=== PATIENT | male | born 1985 | race Two or more races ===

== ENCOUNTER 2016-09-19 20:07 | Emergency (ER) | payer OTHER ==
[~2016-09-19] VITALS: Ht 167.6 cm; Wt 68.0 kg
[2016-09-19 22:35] VITALS: BP 128/67
== END 2016-09-19 22:37 | disposition home or self-care (01) ==
LOC: M ED 21:32
DX: F43.0 Acute stress reaction (principal); F33.9 Major depressive disorder, recurrent, unspecified; F12.20 Cannabis dependence, uncomplicated; F17.210 Nicotine dependence, cigarettes, uncomplicated

== ENCOUNTER 2020-07-09 03:54 | Inpatient (IN) | payer MEDICAID, OTHER, SELFPAY ==
[~2020-07-09] VITALS: Ht 167.6 cm; Wt 72.8 kg
--- OUTSIDE RECORDS SUMMARY | 2020-07-09 04:00 | CCD ---
Author Author [facility] Organization [facility] Address Unknown Phone Unavailable Support Name Relationship Address Phone [facility] Next Of Kin [address] [place] [address] UNEMPLOYED Next Of Kin Unknown UE Next Of Kin Unknown Unavailable SJALEXANDRA GUTIERREZ Next Of Kin [address] [place] [address] ADELITAALEXANDRA [place] Next Of Kin [address] [place] [address] Re-disclosure Warning The records that you are about to access may contain information from federally-assisted alcohol or drug abuse programs. If such information is present, then the following federally mandated warning applies: This information has been disclosed to you from records protected by federal confidentiality rules (42 CFR part 2). The federal rules prohibit you from making any further disclosure of this information unless further disclosure is expressly permitted by the written consent of the person to whom it pertains or as otherwise permitted by 42 CFR part 2. A general authorization for the release of medical or other information is NOT sufficient for this purpose. The Federal rules restrict any use of the information to criminally investigate or prosecute any alcohol or drug abuse patient.The records that you are about to access may contain highly sensitive health information, the redisclosure of which is protected by Article 27-F of the [facility] Public Health law. If you continue you may have access to information: Regarding HIV / AIDS; Provided by facilities licensed or operated by the [facility] Office of Mental Health; or Provided by the [facility] Office for People With Developmental Disabilities. If such information is present, then the following [facility] mandated warning applies: This information has been disclosed to you from confidential records which are protected by state law. State law prohibits you from making any further disclosure of this information without the specific written consent of the person to whom it pertains, or as otherwise permitted by law. Any unauthorized further disclosure in violation of state law may result in a fine or fci sentence or both. A general authorization for the release of medical or other information is NOT sufficient authorization for further disc losure. Insurance Providers Payer name Policy type / Coverage type Policy ID Covered democrat ID Covered democrat's relationship to leone Policy Leone Plan Information [facility] [id number] SP [id number] [id number] MEDICAID [id number] [id number] [facility] [id number] SP [id number] MEDICAID [id number] [facility] [id number] MEDICAID [id number] [facility] [id number] TOTAL CARE MEDICAID [id number] [id number] [facility] [phone] Harini SELF PAY 2 UNAVAILABLE UNAVAILA BLE SELF PAY 2 UNAVAILABLE 1 UNAVAILA BLE [facility] 2 [id number] SELF PAY 2 UNAVAILABLE UNAVAILA BLE
--- OUTSIDE RECORDS SUMMARY | 2020-07-09 05:20 | CCD ---
Author Author [facility] Organization [facility] Address Unknown Phone Unavailable Support Name Relationship Address Phone GRECIA ROBERTSON Next Of Kin [address] [place] [address] [facility] Next Of Kin [address] [place] [address] UNEMPLOYED Next Of Kin Unknown UE Next Of Kin Unknown Unavailable ALEXANDRA GUSTAFSON Next Of Kin [address] [place] [address] ADELITAALEXANDRA [place] Next Of Kin [address] [facility] [address] [place] [address] Re-disclosure Warning The records that you are [...] is protected by Article 27-F of the [facility] Public Health law. If you continue you may have access to information: Regarding HIV / AIDS; Provided by facilities licensed or operated by the [facility] Office of Mental Health; or Provided by the [facility] Office for People With Developmental Disabilities. If such information is present, then the following [facility] mandated warning applies: This information has been [...] law may result in a fine or residential sentence or both. A general authorization for the release of medical or other information is NOT sufficient authorization for further disc losure. Insurance Providers Payer name Policy type / Coverage type Policy ID Covered green party ID Covered green party's relationship to haro Policy Haro Plan Information [facility] [id number] [id number] MEDICAID [id number] [id number] TOTAL CARE [facility] [id number] [place] [id number] MEDICAID [id number] [id number] [facility] [id number] MEDICAID [id number] [id number] TOTAL CARE MEDICAID [id number] [id number] [facility] [id number] Harini [id number] SELF PAY 2 UNAVAILABLE UNAVAILA BLE SELF PAY 2 UNAVAILABLE 1 UNAVAILA BLE [facility] 2 [id number] SELF PAY 2 UNAVAILABLE UNAVAILA BLE
[2020-07-09 05:21] LABS: HEMATOCRIT 45.7 % (42.0-52.0); HEMOGLOBIN 15.2 g/dl (13.5-17.5); MEAN CORPUSCULAR HEMOGLOBIN 29.3 pg (27.0-33.0); MEAN CORPUSCULAR HGB CONC 33.3 g/dl (32.0-36.5); MEAN CORPUSCULAR VOLUME 88.1 fl (80.0-96.0); PLATELET COUNT, AUTOMATED 333 10^3/uL (150-450); RED BLOOD COUNT 5.19 10^6/uL (4.30-6.10); WHITE BLOOD COUNT 12.1 10^3/uL (4.0-10.0)
[2020-07-09 05:56] LABS: AMPHETAMINES LEVEL URINE POSITIVE (NEGATIVE); BARBITURATES URINE NEGATIVE (NEGATIVE); BENZODIAZEPINES URINE NEGATIVE (NEGATIVE); CANNABINOIDS URINE POSITIVE (NEGATIVE); COCAINE METABOLITE URINE POSITIVE (NEGATIVE); METHADONE URINE NEGATIVE (NEGATIVE); OPIATES URINE NEGATIVE (NEGATIVE); PHENCYCLIDINE URINE NEGATIVE (NEGATIVE)
[2020-07-09 06:05] LABS: ACETAMINOPHEN LEVEL < 2.0 UG/ML (10.0-30.0); ALBUMIN 4.7 GM/DL (3.2-5.2); ALT/SGPT 38 U/L (12-78); BILIRUBIN,DIRECT 0.4 MG/DL (0.0-0.2); BILIRUBIN,TOTAL 1.4 MG/DL (0.2-1.0); BLOOD UREA NITROGEN 22 MG/DL (7-18); CALCIUM LEVEL 10.5 MG/DL (8.5-10.1); CARBON DIOXIDE LEVEL 23 MEQ/L (21-32); CHLORIDE LEVEL 101 MEQ/L (98-107); CPK CREATINE PHOSPHOKINASE 991 U/L (39-308); CREATININE FOR GFR 1.25 MG/DL (0.70-1.30); ETHYL ALCOHOL (ETHANOL) < 0.003 % (0.000-0.010); GLOMERULAR FILTRATION RATE > 60.0 (>60); GLUCOSE, FASTING 72 MG/DL (70-100); POTASSIUM SERUM 4.9 MEQ/L (3.5-5.1); SALICYLATE LEVEL 4.8 MG/DL (5.0-30.0); SODIUM LEVEL 136 MEQ/L (136-145); TOTAL PROTEIN 7.9 GM/DL (6.4-8.2)
[2020-07-09] MEDS ORDERED: OLANZapine ORAL DISINTEGRATING TAB 5MG PO ONE (06:30)
[2020-07-09] MEDS ORDERED: LORazepam 1 MG TAB PO STA (06:30)
[2020-07-09 09:10] LABS: HEPATITIS A ANTIBODY IGM NEGATIVE (NEGATIVE); HEPATITIS B CORE ANTIBODY IGM NEGATIVE (NEGATIVE); HEPATITIS B SURFACE ANTIGEN NEGATIVE (NEGATIVE); HEPATITIS C VIRUS ABY INDEX < 0.0 INDEX (<0.8); HIV 1&2 SCREEN CENTAUR NEGATIVE (NEGATIVE)
[2020-07-09 11:17] LABS: CHLAMYDIA DNA AMPLIFICATION NEGATIVE (NEGATIVE); GC DNA AMPLIFICATION NEGATIVE (NEGATIVE)
[2020-07-09] MEDS ORDERED: MAALOX 30 ML SUSP *UDC PO PRN (13:20)
[2020-07-09] MEDS ORDERED: MOM 30ML SUSPENSION UDC PO PRN (13:20)
--- OUTSIDE RECORDS SUMMARY | 2020-07-09 13:37 | CCD ---
Author Author [facility] Organization [facility] Address Unknown Phone Unavailable Support Name Relationship Address Phone GRECIA ROBERTSON Next Of Kin [address] [place] [address] [facility] Next Of Kin [address] [place] [address] UNEMPLOYED Next Of Kin Unknown UE Next Of Kin Unknown Unavailable ALEXANDRA GUSTAFSON Next Of Kin [address] [place] [address] ADELITAALEXANDRA Palomino Next Of Kin [address] [facility] [address] [place] [address] Re-disclosure Warning The records that you are [...] is protected by Article 27-F of the [facility] Public Health law. If you continue you may have access to information: Regarding HIV / AIDS; Provided by facilities licensed or operated by the [facility] Office of Mental Health; or Provided by the [facility] Office for People With Developmental Disabilities. If such information is present, then the following [facility] mandated warning applies: This information has [...] law may result in a fine or halfway sentence or both. A general authorization for the release of medical or other information is NOT sufficient authorization for further disc losure. Insurance Providers Payer name Policy type / Coverage type Policy ID Covered constitution party ID Covered constitution party's relationship to haro Policy Haro Plan Information SELF PAY ONLY [id number] SP [id number] [facility] [id number] SP [id number] [id number] MEDICAID [id number] [id number] TOTAL CARE [facility] [id number] SP [id number] MEDICAID [id number] [id number] [facility] [id number] MEDICAID [id number] [id number] T[facility] CARE MEDICAID [id number] [facility] [id number] [facility] [id number] Harini [id number] SELF PAY 2 UNAVAILABLE UNAVAILA BLE SELF PAY 2 UNAVAILABLE 1 UNAVAILA BLE [facility] 2 [id number] SELF PAY 2 UNAVAILABLE UNAVAILA BLE
[2020-07-09 16:11] VITALS: BP 128/72
--- OUTSIDE RECORDS SUMMARY | 2020-07-09 17:02 | CCD ---
Author Author [facility] Organization [facility] Address Unknown Phone Unavailable Support Name Relationship Address Phone GRECIA ROBERTSON Next Of Kin [address] [place] [address] [facility] Next Of Kin [address] [place] [address] UNEMPLOYED Next Of Kin Unknown UE Next Of Kin Unknown Unavailable ALEXANDRA GUSTAFSON Next Of Kin [address] [place] [address] ADELITAALEXANDRA Palomino Next Of Kin [address] [facility] [address] [place] [address] Re-disclosure Warning The records that you are [...] is protected by Article 27-F of the [facility] Public Health law. If you continue you may have access to information: Regarding HIV / AIDS; Provided by facilities licensed or operated by the [facility] Office of Mental Health; or Provided by the [facility] Office for People With Developmental Disabilities. If such information is present, then the following [facility] mandated warning applies: This information has [...] law may result in a fine or senior care sentence or both. A general authorization for the release of medical or other information is NOT sufficient authorization for further disc losure. Insurance Providers Payer name Policy type / Coverage type Policy ID Covered green party ID Covered green party's relationship to haro Policy Haro Plan Information SELF PAY ONLY [id number] SP [id number] [facility] [id number] SP [id number] [id number] MEDICAID [id number] [id number] TOTAL CARE [facility] [id number] SP [id number] MEDICAID [id number] [id number] [facility] [id number] MEDICAID [id number] [id number] TOTAL CARE MEDICAID [id number] [facility] [id number] [facility] [phone] Harini [phone] SELF PAY 2 UNAVAILABLE UNAVAILA BLE SELF PAY 2 UNAVAILABLE 1 UNAVAILA BLE [facility] 2 [id number] SELF PAY 2 UNAVAILABLE UNAVAILA BLE
[2020-07-10 06:03] VITALS: BP 129/69
[2020-07-10] MEDS: IBUPROFEN 400MG TAB PO PRN (09:10)
--- NOTE | 2020-07-10 10:55 | MHHPEPDOC ---
General Date Of Admission: Jul 10, 2020 Legal Status: 9.39 Chief Complaint People are whispering about me. People may want to push me off the roof History of Present Illness HISTORY OF THE PRESENT ILLNESS: Patient is a 35 -year-old , male, who states that people are whispering about him and may want to push him off the roof. Patient has a long history of substance abuse. Patient has been in and out of halfway for over 15 years for numerous charges. States that when he applies for interviews of people look him up in terms of his record and he is unable to hold a job. He states an past other employees want to throw him off the roof. He states there are cars chasing him. He states he was at a friend's house and was asked to leave because of things they were saying about me.. He states he has had poor sleep and racing thoughts. He states he has had no outpatient care for 2 years. He is presently working in [employer]. He states he has had numerous charges against him, including probation violations, burglary DWIs, drug use. Not reporting for probation. He has used cocaine, crack, heroin, and anjana.. He states he has had no previous psychiatric hospitalizations, but has had outpatient care, but he does not know his therapist. He states in the past. He has been on Seroquel, Remeron and Vistaril but is not on any medications now. His surgical history is negative. His most recent legal problem has been driving without a license and he has a court date on July 21. He has not been but has a 19-year-old son he has never seen.. He has a GED. He states he has suicidal thoughts but has never made suicidal attempts and is concerned about having sexually transmitted diseases Psychiatric Review of Systems Depression (2 or more weeks): depressed mood, appetite changes, suicidal thoughts Psychosis: auditory hallucination PTSD: denies Anxiety: denies Anxiety/ 6 months or more of: sleep disturbance Past Psychiatric History Previous Psychiatric Diagnosis: Patient has been treated with Seroquel Remeron and Vistaril. Diagnosis unknown. Previous Psychiatric Admissions: No previous admissions. Suicide Attempts:. States no previous suicide attempts. Psychiatric Follow-up:. Has had follow-up appointments, but unclear if patient has been compliant. Psychiatric medications:. No recent medications, but past use of Vistaril, Remeron and Seroquel. Past Medical History Medical Problems No recent medical problem Head Injury: No Seizures: No Hospitalizations: No Surgeries: No Family Medical/Psychiatric HX Medical Problems Family history not yet clarified Psychiatric Disorders: No Addiction: No Suicide Attemps/Completions: No Addiction History alcohol, cocaine, ecstasy, amphetamines, opioids, methamphetamines, heroin Social History Childhood: No information. Abuse/Trauma:. No information. Current Living Situation: Lives with his mother and occasionally his employer. Education: GED. Employment: [employer]. Social Support:. Mother. Legal: Extensive legal history with most recent for driving without license. Marital:, Not . Mental Status Examination General Appearance: unkempt Build: average Demeanor: average Eye Contact: average Activity: average Behavior: cooperative Speech: clear Mood: depressed Mood Depressed and fearful Thought Process: depressed, slow Thought Content (Delusions): persecutory, paranoia, delusions Thought Content (Other): internal-stimuli Thought Content (Aggressive): none reported Perception (Hallucinations): auditory, visual Perception (Other): none reported Cognition (Impairment of): none reported Cognition(Intelligence Est.): average Oriented: Awake, Alert, Oriented times three Insight: poor Judgment: Poor Psychosis: Psychotic Perceptions Diagnoses 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 Patient was admitted on a [9.39] status. 2. Complete history was obtained. 3. With patients permission, family will be contacted and database will be expanded. 4. Patients medication regimen will be reviewed and changed accordingly. 5. Patient will be provided with protected environment. 6. Patient will be treated with individual, group, and milieu therapies. 7. Patient will receive supportive psych-education. 8. Discharge planning will commence immediately. 9. Outpatient follow-up treatment will be strongly recommended. 10. The initial treatment plan will focus initially on: * Depression. * Risk for suicide. ESTIMATED LENGTH OF STAY: - DAYS. TIME SPENT COUNSELING AND COORDINATING INITIAL CARE: minutes. Vital Signs Vital Signs Date Time Temp Pulse Resp B/P (MAP) Pulse Ox O2 Delivery O2 Flow Rate FiO2 07/10/20 06:03 97.9 61 18 129/69 (89) 98 Room Air Laboratory Data 24H Labs Laboratory Tests 2 07/09/20 13:14: Coronavirus (COVID-19)(PCR) NEGATIVE Medications No Active Prescriptions or Reported Meds Allergies Coded Allergies: No Known Allergies (Unverified , 07/09/20) QUIRINO FAUSTIN MD Jul 10, 2020 10:55
[2020-07-10 11:58] LABS: ALBUMIN 4.1 GM/DL (3.2-5.2); ALT/SGPT 38 U/L (12-78); BILIRUBIN,TOTAL 0.7 MG/DL (0.2-1.0); BLOOD UREA NITROGEN 20 MG/DL (7-18); CALCIUM LEVEL 9.2 MG/DL (8.5-10.1); CARBON DIOXIDE LEVEL 27 MEQ/L (21-32); CHLORIDE LEVEL 106 MEQ/L (98-107); CPK CREATINE PHOSPHOKINASE 226 U/L (39-308); CREATININE FOR GFR 1.12 MG/DL (0.70-1.30); GLOMERULAR FILTRATION RATE > 60.0 (>60); GLUCOSE, FASTING 108 MG/DL (70-100); POTASSIUM SERUM 4.3 MEQ/L (3.5-5.1); SODIUM LEVEL 140 MEQ/L (136-145); TOTAL PROTEIN 6.7 GM/DL (6.4-8.2)
--- NOTE | 2020-07-10 14:27 | HPEPDOC ---
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 The patient presented to the emergency room complaining of increased paranoia, auditory hallucinations which have been going on for 2 years. The patient states he's been using drugs to help calm these hallucinations but this has only made his situation worse. He has difficulty concentrating, insomnia, poor appetite, decreased energy and feels hopeless. He denied suicidal or homicidal ideation or self-harm. He states he currently has multiple life stressors, has been in and out of alf over the past several years and has trouble with substance abuse. He states he does not have a good support system within his [place] of friends who also use drugs. He used to follow with behavioral health as outpatient but he is not in some time. He also does not have a primary care provider to follow up with in the community. UDS was positive for amphetamines, cocaine and cannabinoids. Creatinine was within normal limits. Approaching the higher limits of normal, CK elevated at 991. There was no documented seizures prior to coming to the ER. 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 Medicine team was consulted on 07/10/2020 to further evaluate. The patient was borderline tearful in telling me his issues as listed above. CK improved and creatinine was within normal limits. Bili was also improved compared to admission. He admits to having at times muscle aches but denies chest pains, shyness of breath, lightheadedness, dizziness, headaches. He claims to feel better since being in the hospital. He was a big concerned as a sexual partner told him recently to be "checked" for STD due to positive test on her end. All STDs thus far are neg here. He denies dysuria, rashes, hematuria, polyuria. REVIEW OF SYSTEMS: Neg except for what is mentioned above PAST MEDICAL HISTORY: Polysubstance abuse (amphetamines, cocaine, cannabinoids, opiates, alcohol) ADHD depression bipolar disorder PAST SURGICAL HISTORY: none FAMILY HISTORY: Father: Does not know biological father Mother: emphysema. Alive SOCIAL HISTORY: Smokes 1 pack per day and has done so for 20 years. He also admits to smoking marijuana. He also is a 20 year history of drug abuse with the aforementioned drugs. He takes alcohol 612 beers per night but not consistently. Lives at various residences as he does not have a permanent residence of his own. He is a full code ALLERGIES: Please see below. HOME MEDICATIONS: Please see below. PHYSICAL EXAMINATION: VS: Please see below CONSTITUTIONAL: No acute distress, AAO x 3 EYES: PERRLA, EOM intact HENT, MOUTH: Normocephalic, atraumatic, moist mucous membranes, NECK: SUPPLE, no JVD, no lymphadenopathy, no carotid bruit CV: Regular rate and rhythm, S1S2 normal, no murmurs/rubs/gallops RESPIRATORY: Clear to auscultation bilaterally, no rales/rhonchi/wheezes GI: BS positive in 4 quadrants, soft, nontender, nondistended, no rebound or guarding, no organomegaly : Deferred MUSCULOSKELETAL: Normal ROM. No cyanosis, clubbing, swelling, joint deformity, extremity edema INTEGUMENTARY: Multiple tattoos on body, intact, no rashes, no lesions, no erythema NEUROLOGIC: Cranial Nerves II-XII are intact, no focal deficits PSYCHIATRIC: Slightly agitated mood LABORATORY DATA: Please see below IMAGING: None ASSESSMENT: 35-year-old male with PMH of polysubstance abuse (amphetamines, cocaine, cannabinoids, opiates, alcohol) , ADHD, depression, bipolar disorder admitted to [facility] for psychotic disorder 2/2 to substance abuse. PLAN: Psychotic disorder 2/2 to polysubstance abuse -Plan per psychiatry Hx of depression / ADHD / bipolar disorder -Plan per psych Elevated CK -Cr wnl, CK improving -Encourage fluids Q2H while awake Tobacco use -Nicotine patch Alcohol abuse -No s/s of withdrawl -CIWA protocol started DISPOSITION: Thank you kindly for this consult. At this will sign off on patient but if needed again, please do not hesitate to call us at any time. Vital Signs Vital Signs Date Time Temp Pulse Resp B/P (MAP) Pulse Ox O2 Delivery O2 Flow Rate FiO2 07/10/20 06:03 97.9 61 18 129/69 (89) 98 Room Air Laboratory Data Labs 24H Laboratory Tests 2 07/10/20 10:46: Anion Gap 7L, Glomerular Filtration Rate > 60.0, Calcium Level 9.2, Total Bilirubin 0.7, Aspartate Amino Transf (AST/SGOT) 31, Alanine Aminotransferase (ALT/SGPT) 38, Alkaline Phosphatase 104, Total Creatine Kinase 226#, Total Protein 6.7, Albumin 4.1, Albumin/Globulin Ratio 1.6 CBC/BMP Laboratory Tests 07/10/20 10:46 Home Medications No Active Prescriptions or Reported Meds Allergies Coded Allergies: No Known Allergies (Unverified , 07/09/20) A-FIB/CHADSVASC A-FIB History Current/History of A-Fib/PAF?: No Current PO Anticoag Therapy: No Age/Risk Factor Scoring CHADSVASC: CHADSVASC Response (Comments) Value Age Risk Factor Age < 65 years old 0 Gender Risk Factor Male 0 Hx of CHF No 0 Hx of HTN No 0 Hx of Stroke/TIA/or VTE No 0 Hx of Diabetes No 0 Hx of Vascular Disease No 0 Total 0 Treatment Treatment ordered: NONE Other anticoagulant ordered: none Claudia Swann MD Jul 10, 2020 14:27
[2020-07-10] MEDS ORDERED: LORazepam 2 MG TAB PO PRN (14:30)
[2020-07-10] MEDS: FOLIC ACID 1 MG TAB PO SCH (15:02)
[2020-07-10] MEDS: MULTIVITAMINS/MINERALS THERAP 1 TAB PO SCH (15:03)
[2020-07-10] MEDS: THIAMINE 100 MG TAB PO SCH ×2 (15:03→21:06)
[2020-07-10] MEDS: NICOTINE 21MG/24HR 1 EA TRANSDERMAL TD SCH (15:03)
[2020-07-10 19:11] VITALS: BP 140/86
[2020-07-10] MEDS: traZODone 50 MG TAB PO PRN (21:06)
[2020-07-11 06:09] VITALS: BP 104/58
[2020-07-11] MEDS: IBUPROFEN 400MG TAB PO PRN (09:29)
[2020-07-11] MEDS: FOLIC ACID 1 MG TAB PO SCH (09:29)
[2020-07-11] MEDS: THIAMINE 100 MG TAB PO SCH ×2 (09:29→20:37)
[2020-07-11] MEDS: NICOTINE 21MG/24HR 1 EA TRANSDERMAL TD SCH (09:30)
[2020-07-11] MEDS: MULTIVITAMINS/MINERALS THERAP 1 TAB PO SCH (09:31)
[2020-07-11] MEDS ORDERED: QUEtiapine FUMARATE 100 MG TAB PO ONE (14:40)
--- NOTE | 2020-07-11 14:52 | MHIPNPDOC ---
[facility] Progress Note Progress Note DATE OF SERVICE: 07/11/20 HISTORY: 35-year-old male with extensive drug use was admitted in paranoid psychotic state. VITAL SIGNS: See below. NEW TEST RESULTS:, Non-. CURRENT MEDICATIONS: See below. MENTAL STATUS EXAMINATION: Patient is a 35-year old male, who is clearing today and decreased paranoia. Speech: Is. Normal. Language skills are intact. Thought processes including: Agreeing that he had become psychotic using drugs. Thought content: As above. Abstract reasoning, and computation: Able to abstract. Description of associations:. No loose association. Description of abnormal or psychotic thoughts: No psychotic thoughts expressed today. Judgment: Improving. Insight: Fair. Orientation: 3. Recent and remote memory: Improved. Attention span and concentration: Apparently normal. Language:. No disturbance. Fund of knowledge: Full. Mood: Euthymic. Affect:, Flat. DIAGNOSES: 1., Polysubstance abuse. 2., Psychosis secondary to polysubstance abuse. 3. None. ASSESSMENT:, As above MANAGEMENT PLAN:, Further observation, started, Seroquel. TIME SPENT: 30 minutes. Vital Signs Vital Signs Date Time Temp Pulse Resp B/P (MAP) Pulse Ox O2 Delivery O2 Flow Rate FiO2 07/11/20 06:09 98.1 61 20 104/58 (73) 95 Room Air Current Medications Current Medications Medications (Trade) Dose Ordered Sig/Shashi Route PRN Reason Start Time Stop Time Status Last Admin Dose Admin Al Hydrox/Mg Hydrox/Simethicone (Mylanta) 30 ml Q4HP PRN PO HEARTBURN/INDIGESTION 07/09/20 13:20 Folic Acid (Folic Acid) 1 mg DAILY PO 07/10/20 09:00 07/11/20 09:29 Home Med (Med Rec Complete!) ASDIRECTED XX 07/09/20 13:20 07/09/20 13:20 DC Ibuprofen (Advil) 400 mg Q6HP PRN PO PAIN 07/09/20 13:20 07/11/20 09:29 Lorazepam (Ativan) 1 mg STAT STAT PO 07/09/20 06:30 07/09/20 06:31 DC 07/09/20 06:38 Lorazepam (Ativan) 2 mg ASDIRECTED PRN PO SEE PROTOCOL 07/10/20 14:30 Magnesium Hydroxide (Milk Of Magnesia) 30 ml DAILYPRN PRN PO CONSTIPATION 07/09/20 13:20 Multivitamins (Theragram-M) 1 tab DAILY PO 07/10/20 09:00 07/11/20 09:31 Nicotine (Nicoderm Cq 21mg) 1 patch DAILY TD 07/10/20 15:00 07/11/20 09:30 Thiamine HCl (Thiamine HCl) 100 mg BID PO 07/10/20 09:00 07/12/20 21:01 07/11/20 09:29 Trazodone HCl (Desyrel) 50 mg QHSP PRN PO INSOMNIA 07/09/20 13:20 07/10/20 21:06 Allergies Coded Allergies: No Known Allergies (Unverified , 07/09/20) QUIRINO FAUSTIN MD Jul 11, 2020 14:52
[2020-07-11 17:30] VITALS: BP 141/75
[2020-07-11] MEDS: QUEtiapine FUMARATE 100 MG TAB PO SCH (20:37)
[2020-07-12 06:28] VITALS: BP 98/52
[2020-07-12 08:10] VITALS: BP 98/52
[2020-07-12] MEDS: THIAMINE 100 MG TAB PO SCH ×2 (09:39→21:02)
[2020-07-12] MEDS: MULTIVITAMINS/MINERALS THERAP 1 TAB PO SCH (09:39)
[2020-07-12] MEDS: FOLIC ACID 1 MG TAB PO SCH (09:39)
[2020-07-12] MEDS: NICOTINE 21MG/24HR 1 EA TRANSDERMAL TD SCH (09:40)
--- NOTE | 2020-07-12 16:12 | MHIPNPDOC ---
[facility] Progress Note Progress Note DATE OF SERVICE: 07/12/20 HISTORY: 35-year-old male admitted with psychosis due to drug abuse. VITAL SIGNS: See below. NEW TEST RESULTS: None. CURRENT MEDICATIONS: See below. MENTAL STATUS EXAMINATION: Patient is a 35-year old male, who is in improved Mood and thoughts are clear. Speech: Is normal. Language skills are. No disturbance. Thought processes including: Planning on rehabilitation. Thought content: Planning on rehabilitation and stopping of drugs. Abstract reasoning, and computation: Able to abstract. Description of associations:. No disturbance. Description of abnormal or psychotic thoughts:. No abnormal or psychotic thought. Judgment: Improved. Insight:. Fair. Orientation: 3. Recent and remote memory: Intact. Attention span and concentration: Intact. Language:. No disturbance. Fund of knowledge: Reasonable. Mood: Good. Affect: Congruent. DIAGNOSES: 1. 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 2. None. 3. None. ASSESSMENT: As above MANAGEMENT PLAN:. Outpatient planning to ensue. TIME SPENT: 30 minutes. Vital Signs Vital Signs Date Time Temp Pulse Resp B/P (MAP) Pulse Ox O2 Delivery O2 Flow Rate FiO2 07/12/20 08:10 59 98/52 07/12/20 06:28 98.4 14 99 Room Air Current Medications Current Medications Medications (Trade) Dose Ordered Sig/Shashi Route PRN Reason Start Time Stop Time Status Last Admin Dose Admin Al Hydrox/Mg Hydrox/Simethicone (Mylanta) 30 ml Q4HP PRN PO HEARTBURN/INDIGESTION 07/09/20 13:20 Folic Acid (Folic Acid) 1 mg DAILY PO 07/10/20 09:00 07/12/20 09:39 Home Med (Med Rec Complete!) ASDIRECTED XX 07/09/20 13:20 07/09/20 13:20 DC Ibuprofen (Advil) 400 mg Q6HP PRN PO PAIN 07/09/20 13:20 07/11/20 09:29 Lorazepam (Ativan) 1 mg STAT STAT PO 07/09/20 06:30 07/09/20 06:31 DC 07/09/20 06:38 Lorazepam (Ativan) 2 mg ASDIRECTED PRN PO SEE PROTOCOL 07/10/20 14:30 Magnesium Hydroxide (Milk Of Magnesia) 30 ml DAILYPRN PRN PO CONSTIPATION 07/09/20 13:20 Multivitamins (Theragram-M) 1 tab DAILY PO 07/10/20 09:00 07/12/20 09:39 Nicotine (Nicoderm Cq 21mg) 1 patch DAILY TD 07/10/20 15:00 07/12/20 09:40 Quetiapine Fumarate (SEROquel) 100 mg QHS PO 07/11/20 21:00 07/11/20 20:37 Thiamine HCl (Thiamine HCl) 100 mg BID PO 07/10/20 09:00 07/12/20 21:01 07/12/20 09:39 Trazodone HCl (Desyrel) 50 mg QHSP PRN PO INSOMNIA 07/09/20 13:20 07/10/20 21:06 Allergies Coded Allergies: No Known Allergies (Unverified , 07/09/20) QUIRINO FAUSTIN MD Jul 12, 2020 16:12
[2020-07-12] MEDS: IBUPROFEN 400MG TAB PO PRN (16:49)
[2020-07-12 16:54] VITALS: BP 140/85
[2020-07-12] MEDS: QUEtiapine FUMARATE 100 MG TAB PO SCH (21:02)
[2020-07-12] MEDS: traZODone 50 MG TAB PO PRN (21:02)
[2020-07-13 06:50] VITALS: BP 118/67
[2020-07-13] MEDS: FOLIC ACID 1 MG TAB PO SCH (08:55)
[2020-07-13] MEDS: MULTIVITAMINS/MINERALS THERAP 1 TAB PO SCH (08:55)
[2020-07-13] MEDS: NICOTINE 21MG/24HR 1 EA TRANSDERMAL TD SCH (08:55)
[2020-07-13] MEDS: IBUPROFEN 400MG TAB PO PRN ×2 (08:56→20:52)
--- NOTE | 2020-07-13 12:57 | MHIPNPDOC ---
[facility] Progress Note Progress Note DATE OF SERVICE: 07/13/20 HISTORY: Substance abuse and paranoia brought this patient to the hospital. VITAL SIGNS: See below. NEW TEST RESULTS: None CURRENT MEDICATIONS: See below. MENTAL STATUS EXAMINATION: Patient is a 35-year old male, who is. Presently clear. Speech: Is. No disturbance of speech. Language skills are intact. Thought processes including:. No disturbance. Thought content: Planning rehabilitation. Abstract reasoning, and computation: Able to abstract. Description of associations:. No loose association. Description of abnormal or psychotic thoughts:. No psychotic thought. At this time. Judgment:. Improved. Insight: Good. Orientation: 3. Recent and remote memory: Intact. Attention span and concentration:. No disturbance. Language: Intact. Fund of knowledge:. Reasonable. Mood: Good. Affect: Congruent DIAGNOSES: 1.. Substance abuse. 2.. Paranoia secondary to substance abuse. 3. None. ASSESSMENT:, As above MANAGEMENT PLAN:, Discharge planning and rehabilitation and alcohol treatment. TIME SPENT:, 30 minutes. Vital Signs Vital Signs Date Time Temp Pulse Resp B/P (MAP) Pulse Ox O2 Delivery O2 Flow Rate FiO2 07/13/20 06:50 98.2 54 18 118/67 (84) 99 Room Air Current Medications Current Medications Medications (Trade) Dose Ordered Sig/Shashi Route PRN Reason Start Time Stop Time Status Last Admin Dose Admin Al Hydrox/Mg Hydrox/Simethicone (Mylanta) 30 ml Q4HP PRN PO HEARTBURN/INDIGESTION 07/09/20 13:20 Folic Acid (Folic Acid) 1 mg DAILY PO 07/10/20 09:00 07/13/20 08:55 Home Med (Med Rec Complete!) ASDIRECTED XX 07/09/20 13:20 07/09/20 13:20 DC Ibuprofen (Advil) 400 mg Q6HP PRN PO PAIN 07/09/20 13:20 07/13/20 08:56 Lorazepam (Ativan) 1 mg STAT STAT PO 07/09/20 06:30 07/09/20 06:31 DC 07/09/20 06:38 Lorazepam (Ativan) 2 mg ASDIRECTED PRN PO SEE PROTOCOL 07/10/20 14:30 07/13/20 07:48 DC Magnesium Hydroxide (Milk Of Magnesia) 30 ml DAILYPRN PRN PO CONSTIPATION 07/09/20 13:20 Multivitamins (Theragram-M) 1 tab DAILY PO 07/10/20 09:00 07/13/20 08:55 Nicotine (Nicoderm Cq 21mg) 1 patch DAILY TD 07/10/20 15:00 07/13/20 08:55 Quetiapine Fumarate (SEROquel) 100 mg QHS PO 07/11/20 21:00 07/12/20 21:02 Thiamine HCl (Thiamine HCl) 100 mg BID PO 07/10/20 09:00 07/12/20 21:01 DC 07/12/20 21:02 Trazodone HCl (Desyrel) 50 mg QHSP PRN PO INSOMNIA 07/09/20 13:20 07/12/20 21:02 Allergies Coded Allergies: No Known Allergies (Unverified , 07/09/20) QUIRINO FAUSTIN MD Jul 13, 2020 12:57
[2020-07-13 18:41] VITALS: BP 129/75
[2020-07-13] MEDS: traZODone 50 MG TAB PO PRN (20:51)
[2020-07-13] MEDS: QUEtiapine FUMARATE 100 MG TAB PO SCH (20:51)
[2020-07-14 06:28] VITALS: BP 111/60
[2020-07-14] MEDS: NICOTINE 21MG/24HR 1 EA TRANSDERMAL TD SCH (09:00)
[2020-07-14] MEDS ORDERED: QUET100T2 PO (09:34)
[2020-07-14] MEDS: FOLIC ACID 1 MG TAB PO SCH (09:50)
[2020-07-14] MEDS: MULTIVITAMINS/MINERALS THERAP 1 TAB PO SCH (09:50)
--- NOTE | 2020-07-14 16:27 | MHDSPDOC ---
[facility] Discharge Summary Discharge Summary DATE OF ADMISSION: Jul 09, 2020 at 16:53 DATE OF DISCHARGE: Jul 14, 2020 at 10:47 DISCHARGE DIAGNOSES: 1. Psychosis secondary to polysubstance abuse. 2. REASON FOR ADMISSION: Paranoia following use of multiple substances CONSULTANTS INVOLVED: None TREATMENT AND PROGRESS ON THE UNIT :. Patient became clear, less paranoid, more coherent. HOSPITAL COURSE: As above DISCHARGE ASSESSMENT:, Patient is a polysubstance abuser and may continue to have difficulties though he claims he will again try sobriety MENTAL STATUS EXAMINATION ON DISCHARGE: Patient is a -year old male, who is . Speech is . Language skills are . Thought processes including: . Thought content: . Abstract reasoning, and computation: . Description of associations: . Description of abnormal or psychotic thoughts: . Judgment: . Insight: . Orientation to . Recent and remote memory: . Attention span and concentration: . Language: . Fund of knowledge: . Mood: . Affect: . MEDICATIONS ON DISCHARGE: - for . - for . - for . PLAN/FOLLOWUP ARRANGEMENTS: . The amount of time spent in the coordination of care for this patient was approximately minutes. ETOH/Disorder Med Rx ETOH/DRUG DISORDER RX: Given to pt at d/c Vital Signs/I&Os Vital Signs Date Time Temp Pulse Resp B/P (MAP) Pulse Ox O2 Delivery O2 Flow Rate FiO2 07/14/20 06:28 97.6 51 20 111/60 (77) 99 Room Air Laboratory [facility] 24H Positive toxicology screen Medications Scheduled Quetiapine Fumarate (Quetiapine Fumarate) 100 Mg Tablet, 100 MG PO QHS for Anxiety Sleep, #10 Allergies Coded Allergies: No Known Allergies (Unverified , 07/09/20) QUIRINO FAUSTIN MD Jul 14, 2020 16:27
== END 2020-07-14 10:47 | disposition home or self-care (01) | DRG 773 ==
LOC: M ED 03:54 → M ED INP 13:20 → UNDOADMIN 13:20 → M PSY 16:24 → M ED INP 16:24 → M PSY 16:53
PROVIDERS: ADMIT Psychiatry & Neurology Psychiatry; ATTEND Psychiatry & Neurology Child & Adolescent Psychiatry
DX: F19.94 Other psychoactive substance use, unspecified with psychoactive substance-induced mood disorder (principal); F11.10 Opioid abuse, uncomplicated; F14.10 Cocaine abuse, uncomplicated; F10.10 Alcohol abuse, uncomplicated; F12.10 Cannabis abuse, uncomplicated; F15.10 Other stimulant abuse, uncomplicated; F17.200 Nicotine dependence, unspecified, uncomplicated

== ENCOUNTER 2021-06-25 13:45 | Emergency (ER) | payer MEDICAID, OTHER ==
[~2021-06-25] VITALS: Ht 170.2 cm; Wt 63.6 kg
[~2021-06-25 13:45] MED LIST: QUET100T2 PO
[2021-06-25 15:26] LABS: HEMATOCRIT 44.9 % (42.0-52.0); HEMOGLOBIN 14.7 g/dl (13.5-17.5); MEAN CORPUSCULAR HEMOGLOBIN 30.1 pg (27.0-33.0); MEAN CORPUSCULAR HGB CONC 32.7 g/dl (32.0-36.5); MEAN CORPUSCULAR VOLUME 91.8 fl (80.0-96.0); PLATELET COUNT, AUTOMATED 387 10^3/uL (150-450); RED BLOOD COUNT 4.89 10^6/uL (4.30-6.10); WHITE BLOOD COUNT 8.5 10^3/uL (4.0-10.0)
[2021-06-25 15:34] LABS: AMPHETAMINES LEVEL URINE NEGATIVE (NEGATIVE); BARBITURATES URINE NEGATIVE (NEGATIVE); BENZODIAZEPINES URINE NEGATIVE (NEGATIVE); CANNABINOIDS URINE POSITIVE (NEGATIVE); COCAINE METABOLITE URINE NEGATIVE (NEGATIVE); METHADONE URINE NEGATIVE (NEGATIVE); OPIATES URINE NEGATIVE (NEGATIVE); PHENCYCLIDINE URINE NEGATIVE (NEGATIVE)
[2021-06-25 16:16] LABS: ACETAMINOPHEN LEVEL < 2.0 UG/ML (10.0-30.0); ALBUMIN 3.4 GM/DL (3.2-5.2); ALT/SGPT 20 U/L (12-78); BILIRUBIN,DIRECT < 0.1 MG/DL (0.0-0.2); BILIRUBIN,TOTAL < 0.1 MG/DL (0.2-1.0); BLOOD UREA NITROGEN 16 MG/DL (7-18); CALCIUM LEVEL 9.1 MG/DL (8.5-10.1); CARBON DIOXIDE LEVEL 31 MEQ/L (21-32); CHLORIDE LEVEL 109 MEQ/L (98-107); CREATININE FOR GFR 0.87 MG/DL (0.70-1.30); ETHYL ALCOHOL (ETHANOL) < 0.003 % (0.000-0.010); GLOMERULAR FILTRATION RATE > 60.0 (>60); GLUCOSE, FASTING 85 MG/DL (70-100); POTASSIUM SERUM 4.6 MEQ/L (3.5-5.1); SODIUM LEVEL 141 MEQ/L (136-145); TOTAL PROTEIN 6.2 GM/DL (6.4-8.2)
[2021-06-25 18:31] VITALS: BP 143/82
== END 2021-06-25 18:32 | disposition home or self-care (01) ==
LOC: M ED 13:45
DX: F19.129 Other psychoactive substance abuse with intoxication, unspecified (principal); Z79.899 Other long term (current) drug therapy

== ENCOUNTER 2021-08-11 06:12 | Inpatient (IN) | payer OTHER ==
[~2021-08-11] VITALS: Ht 167.6 cm; Wt 63.6 kg
[2021-08-11 06:59] LABS: HEMATOCRIT 43.5 % (42.0-52.0); HEMOGLOBIN 14.7 g/dl (13.5-17.5); MEAN CORPUSCULAR HEMOGLOBIN 30.2 pg (27.0-33.0); MEAN CORPUSCULAR HGB CONC 33.8 g/dl (32.0-36.5); MEAN CORPUSCULAR VOLUME 89.3 fl (80.0-96.0); PLATELET COUNT, AUTOMATED 316 10^3/uL (150-450); RED BLOOD COUNT 4.87 10^6/uL (4.30-6.10)
[2021-08-11 07:19] LABS: AMPHETAMINES LEVEL URINE NEGATIVE (NEGATIVE); BARBITURATES URINE NEGATIVE (NEGATIVE); BENZODIAZEPINES URINE NEGATIVE (NEGATIVE); CANNABINOIDS URINE POSITIVE (NEGATIVE); COCAINE METABOLITE URINE NEGATIVE (NEGATIVE); METHADONE URINE NEGATIVE (NEGATIVE); OPIATES URINE NEGATIVE (NEGATIVE); PHENCYCLIDINE URINE NEGATIVE (NEGATIVE)
[2021-08-11 07:30] LABS: RSV AMPLIFICATION NEGATIVE (NEGATIVE)
[2021-08-11 07:31] LABS: ACETAMINOPHEN LEVEL < 2.0 UG/ML (10.0-30.0); ALBUMIN 3.7 GM/DL (3.2-5.2); ALT/SGPT 20 U/L (12-78); BILIRUBIN,DIRECT < 0.1 MG/DL (0.0-0.2); BILIRUBIN,TOTAL 0.1 MG/DL (0.2-1.0); BLOOD UREA NITROGEN 11 MG/DL (7-18); CALCIUM LEVEL 9.1 MG/DL (8.5-10.1); CARBON DIOXIDE LEVEL 32 MEQ/L (21-32); CHLORIDE LEVEL 109 MEQ/L (98-107); CREATININE FOR GFR 0.95 MG/DL (0.70-1.30); ETHYL ALCOHOL (ETHANOL) < 0.003 % (0.000-0.010); GLOMERULAR FILTRATION RATE > 60.0 (>60); GLUCOSE, FASTING 84 MG/DL (70-100); POTASSIUM SERUM 4.4 MEQ/L (3.5-5.1); SODIUM LEVEL 143 MEQ/L (136-145); TOTAL PROTEIN 6.5 GM/DL (6.4-8.2)
[2021-08-11] MEDS ORDERED: HOME MED LIST COMPLETE! XX SCH (12:20)
[2021-08-11] MEDS ORDERED: MAALOX 30 ML SUSP *UDC PO PRN (12:35)
[2021-08-11] MEDS ORDERED: OLANZapine 5 MG TAB PO PRN (12:35)
[2021-08-11] MEDS ORDERED: ACETAMINOPHEN TAB 650MG DOSE (2X325MG) PO PRN (12:35)
[2021-08-11] MEDS ORDERED: MOM 30ML SUSPENSION UDC PO PRN (12:35)
[2021-08-11 13:53] VITALS: BP 128/74
[2021-08-12] MEDS: VENLAFAXINE **XR** 37.5 MG CAPSULE PO SCH (09:00)
[2021-08-12] MEDS: NICOTINE 14 MG/24 HR TRANSDERMAL TD SCH (14:50)
[2021-08-12 16:46] VITALS: BP 108/64
[2021-08-12] MEDS: traZODone 50 MG TAB PO PRN (21:14)
[2021-08-12] MEDS: QUEtiapine FUMARATE 100 MG TAB PO SCH (21:14)
[2021-08-13 06:00] VITALS: BP 103/62
[2021-08-13] MEDS: VENLAFAXINE **XR** 37.5 MG CAPSULE PO SCH (09:39)
[2021-08-13] MEDS: NICOTINE 14 MG/24 HR TRANSDERMAL TD SCH (09:39)
[2021-08-13 13:50] LABS: CHOLESTEROL RISK RATIO 2.381 (<5)
[2021-08-13 18:31] VITALS: BP 136/80
[2021-08-13] MEDS: traZODone 50 MG TAB PO PRN (21:01)
[2021-08-13] MEDS: QUEtiapine FUMARATE 100 MG TAB PO SCH (21:01)
[2021-08-14 06:00] VITALS: BP 110/56
[2021-08-14] MEDS: NICOTINE 14 MG/24 HR TRANSDERMAL TD SCH (09:39)
[2021-08-14] MEDS: VENLAFAXINE **XR** 37.5 MG CAPSULE PO SCH (09:39)
[2021-08-14] MEDS ORDERED: QUET100T2 PO (11:15)
[2021-08-14] MEDS ORDERED: VENL37.598 PO (11:15)
[2021-08-14] MEDS ORDERED: NICO14PA TD (11:15)
[2021-08-14] MEDS ORDERED: TRAZ-252 PO (11:15)
[2021-08-14] MEDS ORDERED: guaiFENesin ER 600 MG TAB PO SCH (11:30)
== END 2021-08-14 13:32 | disposition home or self-care (01) | DRG 753 ==
LOC: M ED 06:12 → M ED INP 12:33 → M PSY 13:46
PROVIDERS: ADMIT Student in an Organized Health Care Education/Training Program; ATTEND Student in an Organized Health Care Education/Training Program
DX: F32.89 Other specified depressive episodes (principal); F19.10 Other psychoactive substance abuse, uncomplicated; F60.89 Other specific personality disorders; Z59.00 Homelessness unspecified; R45.851 Suicidal ideations; R45.850 Homicidal ideations; Z20.822 Contact with and (suspected) exposure to COVID-19; F17.200 Nicotine dependence, unspecified, uncomplicated; Z63.0 Problems in relationship with spouse or partner

== ENCOUNTER 2022-01-07 12:52 | Inpatient (IN) | payer OTHER ==
[~2022-01-07] VITALS: Ht 167.6 cm; Wt 63.6 kg
[~2022-01-07 12:52] MED LIST changes: +NICO14PA TD; +TRAZ-252 PO; +VENL37.598 PO
[2022-01-07] MEDS ORDERED: LORazepam 2 MG TAB PO STA (12:55)
[2022-01-07] MEDS ORDERED: NICOTINE 21MG/24HR 1 EA TRANSDERMAL TD ONE (13:00)
[2022-01-07 14:02] LABS: HEMATOCRIT 40.1 % (42.0-52.0); HEMOGLOBIN 13.6 g/dl (13.5-17.5); MEAN CORPUSCULAR HEMOGLOBIN 30.4 pg (27.0-33.0); MEAN CORPUSCULAR HGB CONC 33.9 g/dl (32.0-36.5); MEAN CORPUSCULAR VOLUME 89.7 fl (80.0-96.0); PLATELET COUNT, AUTOMATED 302 10^3/uL (150-450); RED BLOOD COUNT 4.47 10^6/uL (4.30-6.10)
[2022-01-07 14:36] LABS: RSV AMPLIFICATION NEGATIVE (NEGATIVE)
[2022-01-07 14:43] LABS: ACETAMINOPHEN LEVEL < 2.0 UG/ML (10.0-30.0); ALBUMIN 4.1 GM/DL (3.2-5.2); ALT/SGPT 17 U/L (12-78); BILIRUBIN,DIRECT 0.2 MG/DL (0.0-0.2); BILIRUBIN,TOTAL 0.4 MG/DL (0.2-1.0); BLOOD UREA NITROGEN 16 MG/DL (7-18); CALCIUM LEVEL 9.3 MG/DL (8.5-10.1); CARBON DIOXIDE LEVEL 27 MEQ/L (21-32); CHLORIDE LEVEL 106 MEQ/L (98-107); CREATININE FOR GFR 0.95 MG/DL (0.70-1.30); ETHYL ALCOHOL (ETHANOL) 0.003 % (0.000-0.010); GLOMERULAR FILTRATION RATE > 60.0 (>60); GLUCOSE, FASTING 83 MG/DL (70-100); POTASSIUM SERUM 3.8 MEQ/L (3.5-5.1); SALICYLATE LEVEL < 1.7 MG/DL (5.0-30.0); SODIUM LEVEL 139 MEQ/L (136-145); TOTAL PROTEIN 6.6 GM/DL (6.4-8.2)
[2022-01-07 16:35] LABS: AMPHETAMINES LEVEL URINE POSITIVE (NEGATIVE); BARBITURATES URINE NEGATIVE (NEGATIVE); BENZODIAZEPINES URINE NEGATIVE (NEGATIVE); CANNABINOIDS URINE POSITIVE (NEGATIVE); COCAINE METABOLITE URINE POSITIVE (NEGATIVE); METHADONE URINE NEGATIVE (NEGATIVE); OPIATES URINE NEGATIVE (NEGATIVE); PHENCYCLIDINE URINE NEGATIVE (NEGATIVE)
[2022-01-07] MEDS ORDERED: diphenhydrAMINE 25MG CAP PO ONE (22:15)
[2022-01-08] MEDS ORDERED: CYCL-707 PO (01:06)
[2022-01-08] MEDS ORDERED: HOME MED LIST COMPLETE! XX SCH (01:10)
[2022-01-08] MEDS ORDERED: OLANZapine 5 MG TAB PO PRN (19:10)
[2022-01-08] MEDS ORDERED: VENLAFAXINE **XR** 37.5 MG CAPSULE PO ONE (19:10)
[2022-01-08] MEDS ORDERED: MOM 30ML SUSPENSION UDC PO PRN (19:15)
[2022-01-08] MEDS ORDERED: ACETAMINOPHEN TAB 650MG DOSE (2X325MG) PO PRN (19:15)
[2022-01-08] MEDS ORDERED: MAALOX 30 ML SUSP *UDC PO PRN (19:15)
[2022-01-08 20:26] VITALS: BP 124/84
[2022-01-08] MEDS: QUEtiapine FUMARATE 100 MG TAB PO SCH (21:52)
[2022-01-09 06:33] VITALS: BP 106/72
[2022-01-09] MEDS: NICOTINE 14 MG/24 HR TRANSDERMAL TD SCH (09:41)
[2022-01-09] MEDS ORDERED: VENLAFAXINE **XR** 37.5 MG CAPSULE PO ONE (13:50)
[2022-01-09] MEDS: CYCLOBENZAPRINE 5MG TABLET PO PRN (14:25)
[2022-01-09] MEDS: QUEtiapine FUMARATE 100 MG TAB PO SCH (20:18)
[2022-01-09] MEDS: traZODone 50 MG TAB PO PRN (20:18)
[2022-01-10 06:24] VITALS: BP 110/62
[2022-01-10] MEDS: VENLAFAXINE **XR** 37.5 MG CAPSULE PO SCH (08:59)
[2022-01-10] MEDS: NICOTINE 14 MG/24 HR TRANSDERMAL TD SCH (09:00)
[2022-01-10] MEDS: CYCLOBENZAPRINE 5MG TABLET PO PRN (15:59)
[2022-01-10 19:28] VITALS: BP 146/88
[2022-01-10] MEDS: traZODone 50 MG TAB PO PRN (20:28)
[2022-01-10] MEDS: QUEtiapine FUMARATE 100 MG TAB PO SCH (20:29)
[2022-01-11 06:05] VITALS: BP 102/60
[2022-01-11] MEDS: NICOTINE 14 MG/24 HR TRANSDERMAL TD SCH (09:33)
[2022-01-11] MEDS: VENLAFAXINE **XR** 37.5 MG CAPSULE PO SCH (09:33)
[2022-01-11 12:20] LABS: CHOLESTEROL LEVEL 142 MG/DL (<200); CHOLESTEROL RISK RATIO 2.535 (<5); HDL CHOLESTEROL 56 MG/DL (>40); NON-HDL-C 86 MG/DL; TRIGLYCERIDES LEVEL 454 MG/DL (<150)
[2022-01-11] MEDS: CYCLOBENZAPRINE 5MG TABLET PO PRN (12:59)
[2022-01-11 16:37] VITALS: BP 118/69
[2022-01-11] MEDS: traZODone 50 MG TAB PO PRN (20:17)
[2022-01-11] MEDS: QUEtiapine FUMARATE 100 MG TAB PO SCH (20:17)
[2022-01-11] MEDS: risperiDONE 1 MG TAB PO SCH (20:17)
[2022-01-12 06:16] VITALS: BP 107/60
[2022-01-12] MEDS: VENLAFAXINE **XR** 37.5 MG CAPSULE PO SCH (08:19)
[2022-01-12] MEDS: NICOTINE 14 MG/24 HR TRANSDERMAL TD SCH (08:19)
[2022-01-12] MEDS: risperiDONE 0.5 MG TAB PO SCH (08:19)
[2022-01-12 16:52] VITALS: BP 105/64
[2022-01-12] MEDS: QUEtiapine FUMARATE 100 MG TAB PO SCH (21:27)
[2022-01-12] MEDS: risperiDONE 1 MG TAB PO SCH (21:27)
[2022-01-12] MEDS: traZODone 50 MG TAB PO PRN (21:27)
[2022-01-12] MEDS: CYCLOBENZAPRINE 5MG TABLET PO PRN (21:27)
[2022-01-13 07:18] VITALS: BP 135/78
[2022-01-13] MEDS: VENLAFAXINE **XR** 37.5 MG CAPSULE PO SCH (08:01)
[2022-01-13] MEDS: risperiDONE 0.5 MG TAB PO SCH (08:01)
[2022-01-13] MEDS: NICOTINE 14 MG/24 HR TRANSDERMAL TD SCH (08:01)
[2022-01-13 16:28] VITALS: BP 133/60
[2022-01-13] MEDS: QUEtiapine FUMARATE 100 MG TAB PO SCH (20:05)
[2022-01-13] MEDS: CYCLOBENZAPRINE 5MG TABLET PO PRN (20:05)
[2022-01-13] MEDS: traZODone 50 MG TAB PO PRN (20:05)
[2022-01-13] MEDS: risperiDONE 1 MG TAB PO SCH (20:05)
[2022-01-14 06:57] VITALS: BP 106/72
[2022-01-14] MEDS: VENLAFAXINE **XR** 37.5 MG CAPSULE PO SCH (07:52)
[2022-01-14] MEDS: risperiDONE 0.5 MG TAB PO SCH ×2 (07:52→20:13)
[2022-01-14] MEDS: NICOTINE 14 MG/24 HR TRANSDERMAL TD SCH (07:53)
[2022-01-14] MEDS: diphenhydrAMINE 25MG CAP PO PRN ×2 (12:29→21:33)
[2022-01-14] MEDS ORDERED: NICO14PA TD (18:08)
[2022-01-14] MEDS ORDERED: RISP-7 PO (18:08)
[2022-01-14] MEDS ORDERED: DIPH25CA32 PO (18:08)
[2022-01-14] MEDS ORDERED: QUET100T2 PO (18:08)
[2022-01-14] MEDS ORDERED: CYCL5TAB PO (18:08)
[2022-01-14] MEDS ORDERED: TRAZ-252 PO (18:08)
[2022-01-14] MEDS ORDERED: VENL37.598 PO (18:08)
[2022-01-14 18:17] VITALS: BP 131/69
[2022-01-14] MEDS: traZODone 50 MG TAB PO PRN (20:14)
[2022-01-14] MEDS: QUEtiapine FUMARATE 100 MG TAB PO SCH (20:14)
[2022-01-14] MEDS: CYCLOBENZAPRINE 5MG TABLET PO PRN (20:14)
[2022-01-15 06:32] VITALS: BP 115/63
[2022-01-15] MEDS: VENLAFAXINE **XR** 37.5 MG CAPSULE PO SCH (08:27)
[2022-01-15] MEDS: risperiDONE 0.5 MG TAB PO SCH (08:27)
[2022-01-15] MEDS: NICOTINE 14 MG/24 HR TRANSDERMAL TD SCH (08:28)
== END 2022-01-15 09:41 | disposition home or self-care (01) | DRG 751 ==
LOC: M ED 12:52 → M ED INP 01-08 19:14 → M PSY 01-08 20:57
PROVIDERS: ADMIT Psychiatry & Neurology Psychiatry; ATTEND Psychiatry & Neurology Psychiatry
DX: F29 Unspecified psychosis not due to a substance or known physiological condition (principal); F32.89 Other specified depressive episodes; F60.89 Other specific personality disorders; R45.851 Suicidal ideations; F17.210 Nicotine dependence, cigarettes, uncomplicated; Z79.899 Other long term (current) drug therapy; Z20.822 Contact with and (suspected) exposure to COVID-19

== ENCOUNTER 2022-01-16 10:03 | Emergency (ER) | payer OTHER ==
[~2022-01-16 10:03] MED LIST changes: +CYCL-707 PO; +CYCL5TAB PO; +DIPH25CA32 PO; +RISP-7 PO
[2022-01-16 10:53] LABS: HEMATOCRIT 41.2 % (42.0-52.0); HEMOGLOBIN 14.2 g/dl (13.5-17.5); MEAN CORPUSCULAR HEMOGLOBIN 30.9 pg (27.0-33.0); MEAN CORPUSCULAR HGB CONC 34.5 g/dl (32.0-36.5); MEAN CORPUSCULAR VOLUME 89.6 fl (80.0-96.0); PLATELET COUNT, AUTOMATED 313 10^3/uL (150-450)
[2022-01-16 11:23] LABS: RSV AMPLIFICATION NEGATIVE (NEGATIVE)
[2022-01-16 11:49] LABS: ACETAMINOPHEN LEVEL 2.3 UG/ML (10.0-30.0); ALBUMIN 4.3 GM/DL (3.2-5.2); ALT/SGPT 58 U/L (12-78); BILIRUBIN,DIRECT 0.1 MG/DL (0.0-0.2); BILIRUBIN,TOTAL 0.4 MG/DL (0.2-1.0); BLOOD UREA NITROGEN 15 MG/DL (7-18); CALCIUM LEVEL 9.3 MG/DL (8.5-10.1); CARBON DIOXIDE LEVEL 27 MEQ/L (21-32); CHLORIDE LEVEL 108 MEQ/L (98-107); CREATININE FOR GFR 1.01 MG/DL (0.70-1.30); ETHYL ALCOHOL (ETHANOL) < 0.003 % (0.000-0.010); GLOMERULAR FILTRATION RATE > 60.0 (>60); GLUCOSE, FASTING 92 MG/DL (70-100); POTASSIUM SERUM 4.1 MEQ/L (3.5-5.1); SALICYLATE LEVEL < 1.7 MG/DL (5.0-30.0); SODIUM LEVEL 141 MEQ/L (136-145); TOTAL PROTEIN 7.2 GM/DL (6.4-8.2)
[2022-01-16 13:10] LABS: AMPHETAMINES LEVEL URINE NEGATIVE (NEGATIVE); BARBITURATES URINE NEGATIVE (NEGATIVE); BENZODIAZEPINES URINE NEGATIVE (NEGATIVE); CANNABINOIDS URINE POSITIVE (NEGATIVE); COCAINE METABOLITE URINE NEGATIVE (NEGATIVE); METHADONE URINE NEGATIVE (NEGATIVE); OPIATES URINE NEGATIVE (NEGATIVE); PHENCYCLIDINE URINE NEGATIVE (NEGATIVE)
[2022-01-16] MEDS ORDERED: OLANZapine ORAL DISINTEGRATING TAB 5MG PO ONE (13:45)
[2022-01-16] MEDS ORDERED: NICOTINE 21MG/24HR 1 EA TRANSDERMAL TD ONE (13:45)
[2022-01-16] MEDS ORDERED: HOME MED LIST COMPLETE! XX SCH (14:15)
[2022-01-16] MEDS ORDERED: traZODone 50 MG TAB PO PRN (14:25)
[2022-01-16] MEDS ORDERED: CYCLOBENZAPRINE 5MG TABLET PO PRN (14:25)
[2022-01-16] MEDS ORDERED: diphenhydrAMINE 25MG CAP PO PRN (14:25)
[2022-01-16] MEDS: risperiDONE 0.5 MG TAB PO SCH (20:49)
[2022-01-16] MEDS ORDERED: QUEtiapine FUMARATE 100 MG TAB PO SCH (21:00)
[2022-01-17 07:24] VITALS: BP 109/70
[2022-01-17] MEDS: risperiDONE 0.5 MG TAB PO SCH (08:22)
[2022-01-17] MEDS ORDERED: VENLAFAXINE **XR** 37.5 MG CAPSULE PO SCH (09:00)
== END 2022-01-17 13:12 | disposition home or self-care (01) ==
LOC: M ED 10:03 → EDBD 10:03 → M ED 01-17 13:12
DX: F19.10 Other psychoactive substance abuse, uncomplicated (principal); F31.9 Bipolar disorder, unspecified; F17.200 Nicotine dependence, unspecified, uncomplicated; F14.10 Cocaine abuse, uncomplicated; Z79.899 Other long term (current) drug therapy

== ENCOUNTER 2022-04-27 21:44 | Inpatient (IN) | payer OTHER ==
[~2022-04-27] VITALS: Ht 167.6 cm; Wt 63.6 kg
[2022-04-27 23:05] LABS: ETHYL ALCOHOL (ETHANOL) 0.003 % (0.000-0.010); HEMATOCRIT 43.8 % (42.0-52.0); HEMOGLOBIN 15.2 g/dl (13.5-17.5); MEAN CORPUSCULAR HEMOGLOBIN 29.8 pg (27.0-33.0); MEAN CORPUSCULAR HGB CONC 34.7 g/dl (32.0-36.5); MEAN CORPUSCULAR VOLUME 85.9 fl (80.0-96.0); PLATELET COUNT, AUTOMATED 417 10^3/uL (150-450); WHITE BLOOD COUNT 11.2 10^3/uL (4.0-10.0)
[2022-04-27 23:06] LABS: ACETAMINOPHEN LEVEL < 2.0 UG/ML (10.0-20.0); BILIRUBIN,DIRECT 0.6 MG/DL (<0.4); SALICYLATE LEVEL < 3.0 MG/DL (<30)
[2022-04-27 23:07] LABS: ALBUMIN 4.3 G/DL (3.2-5.2); ALKALINE PHOSPHATASE 111 U/L (46-116); ALT/SGPT 34 U/L (7.0-40); AST/SGOT 37 U/L (<34); BILIRUBIN,TOTAL 1.3 MG/DL (0.3-1.2); BLOOD UREA NITROGEN 19 MG/DL (9-23); CARBON DIOXIDE LEVEL 25 MMOL/L (20-31); CHLORIDE LEVEL 108 MMOL/L (98-107); CREATININE FOR GFR 1.05 MG/DL (0.70-1.30); GLOMERULAR FILTRATION RATE > 60.0 (>60); GLUCOSE, FASTING 89 MG/DL (60-100); POTASSIUM SERUM 3.9 MMOL/L (3.5-5.1); SODIUM LEVEL 139 MMOL/L (136-145); TOTAL PROTEIN 7.5 G/DL (5.7-8.2)
[2022-04-27 23:26] LABS: BARBITURATES URINE NEGATIVE (NEGATIVE); BENZODIAZEPINES URINE NEGATIVE (NEGATIVE); COCAINE METABOLITE URINE NEGATIVE (NEGATIVE); METHADONE URINE NEGATIVE (NEGATIVE); PHENCYCLIDINE URINE NEGATIVE (NEGATIVE)
[2022-04-27 23:28] LABS: AMPHETAMINES LEVEL URINE POSITIVE (NEGATIVE); CANNABINOIDS URINE POSITIVE (NEGATIVE); OPIATES URINE POSITIVE (NEGATIVE)
[2022-04-27 23:42] LABS: RSV AMPLIFICATION NEGATIVE (NEGATIVE)
[2022-04-27] MEDS ORDERED: LORazepam 0.5 MG TAB PO ONE (23:55)
[2022-04-28] MEDS ORDERED: LORazepam 2 MG TAB PO ONE (01:15)
[2022-04-28] MEDS ORDERED: TRAZ-186 PO (01:17)
[2022-04-28] MEDS ORDERED: CYCL5TAB PO (01:17)
[2022-04-28] MEDS ORDERED: EFFE37.5 PO (01:17)
[2022-04-28] MEDS ORDERED: QUET100T2 PO (01:17)
[2022-04-28] MEDS ORDERED: RISP-7 PO (01:17)
[2022-04-28] MEDS ORDERED: BENA25CA4 PO (01:17)
[2022-04-28] MEDS ORDERED: HOME MED LIST COMPLETE! XX SCH (01:20)
[2022-04-28] MEDS ORDERED: diphenhydrAMINE 25MG CAP PO PRN (13:15)
[2022-04-28 14:58] VITALS: BP 103/72
[2022-04-28] MEDS: VENLAFAXINE **XR** 37.5 MG CAPSULE PO SCH (16:11)
[2022-04-28 18:11] VITALS: BP 132/64
[2022-04-28] MEDS: risperiDONE 0.5 MG TAB PO SCH (20:06)
[2022-04-28] MEDS: QUEtiapine FUMARATE 100 MG TAB PO SCH (20:06)
[2022-04-29 06:29] VITALS: BP 145/72
[2022-04-29] MEDS: NICOTINE 21MG/24HR 1 EA TRANSDERMAL TD SCH (09:00)
[2022-04-29] MEDS: VENLAFAXINE **XR** 37.5 MG CAPSULE PO SCH (09:45)
[2022-04-29] MEDS: risperiDONE 0.5 MG TAB PO SCH ×2 (09:45→21:19)
[2022-04-29 15:09] VITALS: BP 103/70
[2022-04-29] MEDS: traZODone 50 MG TAB PO SCH (21:19)
[2022-04-29] MEDS: QUEtiapine FUMARATE 100 MG TAB PO SCH (21:19)
[2022-04-30 06:23] VITALS: BP 105/65
[2022-04-30] MEDS: NICOTINE 21MG/24HR 1 EA TRANSDERMAL TD SCH (09:00)
[2022-04-30] MEDS: VENLAFAXINE **XR** 37.5 MG CAPSULE PO SCH (09:28)
[2022-04-30] MEDS: risperiDONE 0.5 MG TAB PO SCH (09:28)
[2022-04-30 19:51] VITALS: BP 141/85
[2022-04-30] MEDS: QUEtiapine FUMARATE 100 MG TAB PO SCH (20:04)
[2022-04-30] MEDS: risperiDONE 1 MG TAB PO SCH (20:04)
[2022-04-30] MEDS: traZODone 50 MG TAB PO SCH (20:04)
[2022-05-01 06:41] VITALS: BP 101/66
[2022-05-01] MEDS: NICOTINE 21MG/24HR 1 EA TRANSDERMAL TD SCH (09:00)
[2022-05-01] MEDS: risperiDONE 1 MG TAB PO SCH ×2 (09:42→21:16)
[2022-05-01] MEDS: VENLAFAXINE **XR** 37.5 MG CAPSULE PO SCH (09:42)
[2022-05-01 18:25] VITALS: BP 102/73
[2022-05-01] MEDS: QUEtiapine FUMARATE 100 MG TAB PO SCH (21:16)
[2022-05-01] MEDS: traZODone 50 MG TAB PO SCH (21:16)
[2022-05-02 06:54] VITALS: BP 101/63
[2022-05-02] MEDS: NICOTINE 21MG/24HR 1 EA TRANSDERMAL TD SCH ×2 (08:41→10:11)
[2022-05-02] MEDS: VENLAFAXINE **XR** 37.5 MG CAPSULE PO SCH (08:42)
[2022-05-02] MEDS: risperiDONE 1 MG TAB PO SCH ×2 (08:42→20:07)
[2022-05-02 18:06] VITALS: BP 116/68
[2022-05-02] MEDS: QUEtiapine FUMARATE 100 MG TAB PO SCH (20:07)
[2022-05-02] MEDS: traZODone 50 MG TAB PO SCH (20:07)
[2022-05-03 06:46] VITALS: BP 110/53
[2022-05-03] MEDS: NICOTINE 21MG/24HR 1 EA TRANSDERMAL TD SCH (08:55)
[2022-05-03] MEDS: VENLAFAXINE **XR** 37.5 MG CAPSULE PO SCH (08:55)
[2022-05-03] MEDS: risperiDONE 1 MG TAB PO SCH ×2 (08:55→20:00)
[2022-05-03 16:15] VITALS: BP 106/62
[2022-05-03] MEDS: traZODone 50 MG TAB PO SCH (20:00)
[2022-05-03] MEDS: QUEtiapine FUMARATE 100 MG TAB PO SCH (20:00)
[2022-05-04 06:25] VITALS: BP 110/58
[2022-05-04] MEDS: NICOTINE 21MG/24HR 1 EA TRANSDERMAL TD SCH (08:06)
[2022-05-04] MEDS: VENLAFAXINE **XR** 37.5 MG CAPSULE PO SCH (08:07)
[2022-05-04] MEDS: risperiDONE 1 MG TAB PO SCH (08:07)
[2022-05-04] MEDS ORDERED: QUET100T2 PO (13:35)
[2022-05-04] MEDS ORDERED: RISP-9 PO (13:35)
[2022-05-04] MEDS ORDERED: EFFE37.5 PO (13:35)
[2022-05-04] MEDS ORDERED: NICO21PAT TD (13:35)
== END 2022-05-04 14:55 | disposition home or self-care (01) | DRG 751 ==
LOC: M ED 21:44 → M ED INP 04-28 13:09 → M PSY 04-28 14:55
PROVIDERS: ADMIT Student in an Organized Health Care Education/Training Program; ATTEND Student in an Organized Health Care Education/Training Program
DX: F29 Unspecified psychosis not due to a substance or known physiological condition (principal); F31.9 Bipolar disorder, unspecified; F12.90 Cannabis use, unspecified, uncomplicated; F15.90 Other stimulant use, unspecified, uncomplicated; F17.200 Nicotine dependence, unspecified, uncomplicated; F60.89 Other specific personality disorders; Z59.00 Homelessness unspecified; F90.9 Attention-deficit hyperactivity disorder, unspecified type; Z79.899 Other long term (current) drug therapy

== ENCOUNTER 2022-08-12 22:37 | Inpatient (IN) | payer OTHER ==
[~2022-08-12] VITALS: Ht 167.6 cm; Wt 63.6 kg
[~2022-08-12 22:37] MED LIST changes: +BENA25CA4 PO; +DIPH-435 PO; -DIPH25CA32 PO; +EFFE37.5 PO; +NICO21PAT TD; +RISP-9 PO; +TRAZ-186 PO
[2022-08-12] MEDS ORDERED: LORazepam 2 MG TAB PO STA (22:59)
[2022-08-12 23:17] LABS: HEMATOCRIT 47.3 % (42.0-52.0); HEMOGLOBIN 16.1 g/dl (13.5-17.5); MEAN CORPUSCULAR HEMOGLOBIN 29.7 pg (27.0-33.0); MEAN CORPUSCULAR VOLUME 87.3 fl (80.0-96.0); PLATELET COUNT, AUTOMATED 400 10^3/uL (150-450); RED BLOOD COUNT 5.42 10^6/uL (4.30-6.10); WHITE BLOOD COUNT 12.8 10^3/uL (4.0-10.0)
[2022-08-12 23:50] LABS: BARBITURATES URINE NEGATIVE (NEGATIVE); BENZODIAZEPINES URINE NEGATIVE (NEGATIVE); METHADONE URINE NEGATIVE (NEGATIVE); PHENCYCLIDINE URINE NEGATIVE (NEGATIVE)
[2022-08-12 23:52] LABS: AMPHETAMINES LEVEL URINE POSITIVE (NEGATIVE); CANNABINOIDS URINE POSITIVE (NEGATIVE); COCAINE METABOLITE URINE POSITIVE (NEGATIVE); OPIATES URINE POSITIVE (NEGATIVE)
[2022-08-12 23:53] LABS: ETHYL ALCOHOL (ETHANOL) 0.004 % (0.000-0.010)
[2022-08-12 23:54] LABS: ACETAMINOPHEN LEVEL < 2.0 UG/ML (10.0-20.0); ALBUMIN 4.8 G/DL (3.2-5.2); ALKALINE PHOSPHATASE 114 U/L (46-116); ALT/SGPT 22 U/L (7.0-40); AST/SGOT 16 U/L (<34); BILIRUBIN,DIRECT 0.4 MG/DL (<0.4); BILIRUBIN,TOTAL 0.8 MG/DL (0.3-1.2); BLOOD UREA NITROGEN 12 MG/DL (9-23); CALCIUM LEVEL 10.1 MG/DL (8.5-10.1); CARBON DIOXIDE LEVEL 24 MMOL/L (20-31); CHLORIDE LEVEL 106 MMOL/L (98-107); CREATININE FOR GFR 0.79 MG/DL (0.70-1.30); GLOMERULAR FILTRATION RATE > 60.0 (>60); GLUCOSE, FASTING 97 MG/DL (60-100); SALICYLATE LEVEL < 3.0 MG/DL (<30); SODIUM LEVEL 140 MMOL/L (136-145); TOTAL PROTEIN 7.9 G/DL (5.7-8.2)
[2022-08-12 23:56] LABS: THYROID STIMULATING HORMONE 1.189 uIU/ML (0.55-4.78)
[2022-08-13] MEDS ORDERED: HOME MED LIST COMPLETE! XX SCH (02:05)
[2022-08-13] MEDS ORDERED: NICOTINE 21MG/24HR 1 EA TRANSDERMAL TD ONE (02:50)
[2022-08-13] MEDS ORDERED: OLANZapine ORAL DISINTEGRATING TAB 5MG PO ONE (05:30)
[2022-08-13] MEDS ORDERED: LORazepam 2 MG TAB PO STA (11:17)
[2022-08-13] MEDS ORDERED: OLANZapine ORAL DISINTEGRATING TAB 5MG PO PRN (15:35)
[2022-08-13] MEDS ORDERED: IBUPROFEN 400MG TAB PO PRN (15:35)
[2022-08-13] MEDS ORDERED: diphenhydrAMINE 25MG CAP PO PRN (15:35)
[2022-08-13] MEDS ORDERED: MOM 30ML SUSPENSION UDC PO PRN (15:35)
[2022-08-13] MEDS ORDERED: MAALOX 30 ML SUSP *UDC PO PRN (15:35)
[2022-08-13 23:04] VITALS: BP 107/71
[2022-08-14 06:25] VITALS: BP 119/75
[2022-08-14] MEDS: NICOTINE 21MG/24HR 1 EA TRANSDERMAL TD SCH (09:00)
[2022-08-14] MEDS: VENLAFAXINE **XR** 75MG CAPSULE PO SCH (12:07)
[2022-08-14 16:31] VITALS: BP 103/65
[2022-08-14] MEDS: risperiDONE 2 MG TAB PO SCH (21:29)
[2022-08-15 06:35] VITALS: BP 119/76
[2022-08-15] MEDS: VENLAFAXINE **XR** 75MG CAPSULE PO SCH (09:32)
[2022-08-15] MEDS: NICOTINE 21MG/24HR 1 EA TRANSDERMAL TD SCH (09:43)
[2022-08-15 16:47] VITALS: BP 113/73
[2022-08-15] MEDS: risperiDONE 2 MG TAB PO SCH (20:06)
[2022-08-15] MEDS: traZODone 50 MG TAB PO PRN (20:06)
[2022-08-16 06:50] VITALS: BP 105/69
[2022-08-16] MEDS: VENLAFAXINE **XR** 75MG CAPSULE PO SCH (10:05)
[2022-08-16] MEDS: NICOTINE 21MG/24HR 1 EA TRANSDERMAL TD SCH (10:07)
[2022-08-16 18:05] VITALS: BP 109/58
[2022-08-16] MEDS: risperiDONE 2 MG TAB PO SCH (20:12)
[2022-08-16] MEDS: traZODone 50 MG TAB PO PRN (20:12)
[2022-08-17 06:09] VITALS: BP 106/56
[2022-08-17 08:19] VITALS: BP 106/56
[2022-08-17] MEDS ORDERED: traZODone 25MG PER 1/2 TABLET PO PRN (10:10)
[2022-08-17] MEDS: NICOTINE 21MG/24HR 1 EA TRANSDERMAL TD SCH (10:18)
[2022-08-17] MEDS: VENLAFAXINE **XR** 75MG CAPSULE PO SCH (10:19)
[2022-08-17 17:45] VITALS: BP 121/72
[2022-08-17] MEDS: risperiDONE 2 MG TAB PO SCH (20:24)
[2022-08-17] MEDS ORDERED: QUEtiapine FUMARATE 50MG TAB PO SCH (21:00)
[2022-08-18 06:02] VITALS: BP 101/57
[2022-08-18] MEDS: NICOTINE 21MG/24HR 1 EA TRANSDERMAL TD SCH (09:00)
[2022-08-18] MEDS ORDERED: QUET50TA4 PO (09:22)
[2022-08-18] MEDS ORDERED: TRAZ-252 PO (09:22)
[2022-08-18] MEDS ORDERED: VENL75CA47 PO (09:22)
[2022-08-18] MEDS ORDERED: NICO21PAT TD (09:22)
[2022-08-18] MEDS ORDERED: RISP-9 PO (09:22)
[2022-08-18] MEDS: VENLAFAXINE **XR** 75MG CAPSULE PO SCH (09:25)
[2022-08-19] MEDS ORDERED: TRAZ-252 PO (13:45)
[2022-08-19] MEDS ORDERED: QUET50TA4 PO (13:45)
[2022-08-19] MEDS ORDERED: RISP-9 PO (13:45)
[2022-08-19] MEDS ORDERED: VENL75CA2 PO (13:45)
[2022-08-19] MEDS ORDERED: NICO21DI9 TD (13:45)
== END 2022-08-18 13:16 | disposition home or self-care (01) | DRG 751 ==
LOC: M ED 22:37 → M ED INP 08-13 15:31 → M PSY 08-13 21:07
PROVIDERS: ADMIT Psychiatry & Neurology Psychiatry; ATTEND Student in an Organized Health Care Education/Training Program
DX: F29 Unspecified psychosis not due to a substance or known physiological condition (principal); F60.89 Other specific personality disorders; Z59.00 Homelessness unspecified; R45.851 Suicidal ideations; F17.200 Nicotine dependence, unspecified, uncomplicated; K21.9 Gastro-esophageal reflux disease without esophagitis; F12.10 Cannabis abuse, uncomplicated; F11.10 Opioid abuse, uncomplicated; F15.10 Other stimulant abuse, uncomplicated; F14.10 Cocaine abuse, uncomplicated

== ENCOUNTER 2022-08-19 11:21 | Emergency (ER) | payer OTHER ==
[~2022-08-19] VITALS: Ht 167.6 cm; Wt 63.6 kg
[~2022-08-19 11:21] MED LIST changes: +QUET50TA4 PO; +VENL75CA47 PO
[2022-08-19 11:42] VITALS: BP 146/107
[2022-08-19] MEDS ORDERED: LORazepam 1 MG TAB PO ONE (13:20)
[2022-08-19] MEDS ORDERED: NICO21DI9 TD (13:45)
[2022-08-19] MEDS ORDERED: RISP-9 PO (13:45)
[2022-08-19] MEDS ORDERED: QUET50TA4 PO (13:45)
[2022-08-19] MEDS ORDERED: VENL75CA2 PO (13:45)
[2022-08-19] MEDS ORDERED: TRAZ-252 PO (13:45)
[2022-08-19] MEDS ORDERED: HOME MED LIST COMPLETE! XX SCH (13:50)
[2022-08-19 14:43] LABS: HEMOGLOBIN 15.4 g/dl (13.5-17.5); MEAN CORPUSCULAR HEMOGLOBIN 29.9 pg (27.0-33.0); MEAN CORPUSCULAR HGB CONC 34.2 g/dl (32.0-36.5); MEAN CORPUSCULAR VOLUME 87.4 fl (80.0-96.0); PLATELET COUNT, AUTOMATED 377 10^3/uL (150-450); RED BLOOD COUNT 5.15 10^6/uL (4.30-6.10); WHITE BLOOD COUNT 9.8 10^3/uL (4.0-10.0)
[2022-08-19 14:48] LABS: AMPHETAMINES LEVEL URINE NEGATIVE (NEGATIVE); BARBITURATES URINE NEGATIVE (NEGATIVE); BENZODIAZEPINES URINE NEGATIVE (NEGATIVE)
[2022-08-19 14:49] LABS: METHADONE URINE NEGATIVE (NEGATIVE); OPIATES URINE NEGATIVE (NEGATIVE); PHENCYCLIDINE URINE NEGATIVE (NEGATIVE)
[2022-08-19 14:51] LABS: ETHYL ALCOHOL (ETHANOL) < 0.003 % (0.000-0.010)
[2022-08-19 14:52] LABS: SALICYLATE LEVEL < 3.0 MG/DL (<30)
[2022-08-19 14:53] LABS: ACETAMINOPHEN LEVEL < 2.0 UG/ML (10.0-20.0); ALBUMIN 4.4 G/DL (3.2-5.2); ALKALINE PHOSPHATASE 102 U/L (46-116); ALT/SGPT 17 U/L (7.0-40); AST/SGOT 12 U/L (<34); BILIRUBIN,DIRECT 0.2 MG/DL (<0.4); BILIRUBIN,TOTAL 0.5 MG/DL (0.3-1.2); BLOOD UREA NITROGEN 11 MG/DL (9-23); CALCIUM LEVEL 9.7 MG/DL (8.5-10.1); CARBON DIOXIDE LEVEL 27 MMOL/L (20-31); CHLORIDE LEVEL 106 MMOL/L (98-107); CREATININE FOR GFR 0.75 MG/DL (0.70-1.30); GLOMERULAR FILTRATION RATE > 60.0 (>60); GLUCOSE, FASTING 97 MG/DL (60-100); SODIUM LEVEL 140 MMOL/L (136-145); TOTAL PROTEIN 7.2 G/DL (5.7-8.2)
[2022-08-19 14:54] LABS: THYROID STIMULATING HORMONE 1.467 uIU/ML (0.55-4.78)
[2022-08-19 15:05] LABS: CANNABINOIDS URINE POSITIVE (NEGATIVE); COCAINE METABOLITE URINE POSITIVE (NEGATIVE)
== END 2022-08-19 15:39 | disposition home or self-care (01) ==
LOC: M ED 14:21
DX: Z59.00 Homelessness unspecified (principal); Z76.5 Malingerer [conscious simulation]; F19.10 Other psychoactive substance abuse, uncomplicated; F90.9 Attention-deficit hyperactivity disorder, unspecified type; F17.200 Nicotine dependence, unspecified, uncomplicated

== ENCOUNTER 2024-04-30 10:24 | Emergency (ER) | payer OTHER, SELFPAY ==
[~2024-04-30] VITALS: Ht 167.6 cm; Wt 68.2 kg
[~2024-04-30 10:24] MED LIST changes: -CYCL5TAB PO; +CYCL5TAB4 PO; -EFFE37.5 PO; +EFFE37.52 PO; +NICO21DI9 TD; +RISP-106 PO; -RISP-7 PO; -RISP-9 PO; +RISP0.5T82 PO; +VENL75CA2 PO
[2024-04-30] MEDS ORDERED: ISOVUE-370 76% 100ML VIAL As Ordered ONE (11:52)
[2024-04-30 12:37] VITALS: BP 108/81; TEMP 97.5; O2SAT 97
[2024-04-30] MEDS ORDERED: ONDA-282 PO (12:42)
== END 2024-04-30 13:16 | disposition home or self-care (01) ==
LOC: M ED 10:24 → EDBD 10:24 → M ED 13:16
DX: K52.9 Noninfective gastroenteritis and colitis, unspecified (principal); F17.200 Nicotine dependence, unspecified, uncomplicated; Z79.899 Other long term (current) drug therapy
CPT/HCPCS: 99284; Q9967

== ENCOUNTER 2024-07-11 18:46 | Emergency (ER) | payer SELFPAY ==
[~2024-07-11] VITALS: Ht 167.6 cm; Wt 61.6 kg
[~2024-07-11 18:46] MED LIST changes: +ONDA-282 PO
[2024-07-12] MEDS ORDERED: cefTRIAXone SOD 1 GM in DEXTROSE 5% (D5W) ADV/MINI-BAG 50 ML IV ONE (08:30)
[2024-07-12] MEDS: ACETAMINOPHEN 325 MG TAB PO ONE (08:39)
[2024-07-12] MEDS: DOXYCYCLINE HYCLATE 100MG TABLET PO ONE (08:58)
[2024-07-12] MEDS: BENZONATATE 100MG CAPSULE PO ONE (08:58)
[2024-07-12] MEDS: IPRATROPIUM 0.5MG/ALBUTEROL 2.5MG INH SOL UD 3ML (DUONEB) INH ONE (08:58)
[2024-07-12] MEDS ORDERED: BENZ200C70 PO (09:00)
[2024-07-12] MEDS ORDERED: DOXY100C82 PO (09:00)
[2024-07-12] MEDS ORDERED: VENTAER INH (09:00)
[2024-07-12] MEDS ORDERED: MEDR4TAB PO (09:00)
[2024-07-12 09:28] VITALS: BP 109/72; TEMP 99.3; O2SAT 96
== END 2024-07-12 09:30 | disposition home or self-care (01) ==
LOC: M ED 18:46 → EDBD 18:46 → M ED 07-12 09:30
DX: J18.9 Pneumonia, unspecified organism (principal); F17.200 Nicotine dependence, unspecified, uncomplicated; F14.10 Cocaine abuse, uncomplicated; Z79.899 Other long term (current) drug therapy

== ENCOUNTER 2024-11-24 11:20 | Emergency (ER) | payer MEDICAID, OTHER ==
[~2024-11-24 11:20] MED LIST changes: +BENZ200C70 PO; +DOXY-442 PO; +MEDR4TAB PO; +VENTAER INH
[2024-11-24 11:57] LABS: PLATELET COUNT, AUTOMATED 317 10^3/uL (150-450)
[2024-11-24 12:14] LABS: ETHYL ALCOHOL (ETHANOL) < 0.003 % (0.000-0.010)
[2024-11-24 12:16] LABS: ALT/SGPT 28 U/L (7.0-40); AST/SGOT 58 U/L (<34); CALCIUM LEVEL 9.4 MG/DL (8.5-10.1); CARBON DIOXIDE LEVEL 20 MMOL/L (20-31); CHLORIDE LEVEL 100 MMOL/L (98-107); CREATININE FOR GFR 1.56 MG/DL (0.70-1.30); GLOMERULAR FILTRATION RATE 56.9 (>60); POTASSIUM SERUM 4.2 MMOL/L (3.5-5.1); SALICYLATE LEVEL < 3.0 MG/DL (<30); SODIUM LEVEL 141 MMOL/L (136-145)
[2024-11-24 14:18] LABS: BARBITURATES URINE NEGATIVE (NEGATIVE); BENZODIAZEPINES URINE NEGATIVE (NEGATIVE); METHADONE URINE NEGATIVE (NEGATIVE); OPIATES URINE NEGATIVE (NEGATIVE); PHENCYCLIDINE URINE NEGATIVE (NEGATIVE)
[2024-11-24] MEDS: ACETAMINOPHEN 325 MG TAB PO ONE (14:27)
[2024-11-24 14:34] LABS: AMPHETAMINES LEVEL URINE POSITIVE (NEGATIVE); CANNABINOIDS URINE POSITIVE (NEGATIVE); COCAINE METABOLITE URINE POSITIVE (NEGATIVE)
[2024-11-24 22:02] VITALS: BP 112/79; TEMP 98; O2SAT 96
== END 2024-11-24 22:10 | disposition home or self-care (01) ==
LOC: M ED 11:20
DX: F23 Brief psychotic disorder (principal); F19.10 Other psychoactive substance abuse, uncomplicated; F31.9 Bipolar disorder, unspecified; F10.10 Alcohol abuse, uncomplicated; Z79.52 Long term (current) use of systemic steroids; Z79.83 Long term (current) use of bisphosphonates; Z79.899 Other long term (current) drug therapy

== ENCOUNTER 2025-01-28 15:57 | Inpatient (IN) | payer OTHER ==
[~2025-01-28] VITALS: Ht 165.1 cm; Wt 63.8 kg
[2025-01-28 17:55] LABS: BARBITURATES URINE NEGATIVE (NEGATIVE); BENZODIAZEPINES URINE NEGATIVE (NEGATIVE); METHADONE URINE NEGATIVE (NEGATIVE); OPIATES URINE NEGATIVE (NEGATIVE); PHENCYCLIDINE URINE NEGATIVE (NEGATIVE)
[2025-01-28 17:58] LABS: AMPHETAMINES LEVEL URINE POSITIVE (NEGATIVE); CANNABINOIDS URINE POSITIVE (NEGATIVE); COCAINE METABOLITE URINE POSITIVE (NEGATIVE)
[2025-01-28 18:05] LABS: PLATELET COUNT, AUTOMATED 363 10^3/uL (150-450)
[2025-01-28 18:23] LABS: ETHYL ALCOHOL (ETHANOL) < 0.003 % (0.000-0.010)
[2025-01-28 18:25] LABS: ALT/SGPT 44 U/L (7.0-40); AST/SGOT 48 U/L (<34); CALCIUM LEVEL 9.7 MG/DL (8.5-10.1); CARBON DIOXIDE LEVEL 27 MMOL/L (20-31); CHLORIDE LEVEL 102 MMOL/L (98-107); CREATININE FOR GFR 1.44 MG/DL (0.70-1.30); GLOMERULAR FILTRATION RATE 62.6 (>60); POTASSIUM SERUM 4.7 MMOL/L (3.5-5.1); SALICYLATE LEVEL < 3.0 MG/DL (<30); SODIUM LEVEL 135 MMOL/L (136-145)
[2025-01-28] MEDS ORDERED: med rec comment (21:29)
[2025-01-28] MEDS ORDERED: HOME MED LIST COMPLETE! XX SCH (21:30)
[2025-01-28] MEDS ORDERED: MOM 30 ML SUSPENSION UDC PO PRN (21:55)
[2025-01-28] MEDS ORDERED: MAALOX 30 ML SUSP *UDC PO PRN (21:55)
[2025-01-28] MEDS ORDERED: ACETAMINOPHEN 325 MG TAB PO PRN (21:55)
[2025-01-28] MEDS ORDERED: IBUPROFEN 400 MG TAB PO PRN (21:55)
[2025-01-28] MEDS ORDERED: ALBUTEROL 90 MCG/ACT 8 GM HFA INHALER INH PRN (21:55)
[2025-01-28 23:09] VITALS: BP 98/68; TEMP 96.8; O2SAT 97
[2025-01-29] MEDS: NICOTINE 21 MG/24 HR 1 EA TRANSDERMAL TD SCH ×2 (09:00→10:49)
[2025-01-29] MEDS: VENLAFAXINE **XR** 37.5 MG CAPSULE PO SCH (15:00)
[2025-01-29 15:23] VITALS: BP 135/71; TEMP 98; O2SAT 98
[2025-01-29] MEDS: LURASIDONE HCL 20 MG TAB PO SCH (18:27)
[2025-01-30 06:43] VITALS: BP 108/57; TEMP 97.3; O2SAT 100
[2025-01-30 15:15] VITALS: BP 103/68; TEMP 97.7; O2SAT 100
[2025-01-31 06:53] VITALS: BP 109/63; TEMP 98.1; O2SAT 100
[2025-01-31 16:50] VITALS: BP 109/60; TEMP 97.9; O2SAT 100
[2025-01-31] MEDS: LURASIDONE HCL 40 MG TAB PO SCH (17:54)
[2025-02-01 06:33] VITALS: BP 105/62; TEMP 97.8; O2SAT 100
[2025-02-01 15:36] VITALS: BP 121/78; TEMP 98.2; O2SAT 98
[2025-02-02 06:43] VITALS: BP 101/60; TEMP 98.1; O2SAT 100
[2025-02-02] MEDS: traZODone 50 MG TAB PO PRN (19:54)
[2025-02-03 06:37] VITALS: BP 93/55; TEMP 98.3; O2SAT 100
[2025-02-04 06:38] VITALS: BP 100/55; TEMP 98; O2SAT 96
[2025-02-04] MEDS ORDERED: DIVALPROEX 250 MG TAB PO SCH (09:00)
[2025-02-04] MEDS ORDERED: LURASIDONE HCL 40 MG TAB PO SCH (18:00)
[2025-02-04] MEDS ORDERED: VENL37.52 PO (20:01)
[2025-02-04] MEDS ORDERED: LATU40TA2 PO (20:01)
[2025-02-04] MEDS ORDERED: MED REC COMMENT (20:03)
[2025-02-04] MEDS ORDERED: OLANZapine 5 MG TAB PO SCH (21:00)
[2025-02-06] MEDS ORDERED: LATU40TA2 PO (09:20)
[2025-02-06] MEDS ORDERED: DIVA-65 PO (09:20)
== END 2025-02-04 10:00 | disposition left against medical advice (07) | DRG 753 ==
LOC: M ED 15:57 → M ED INP 21:55 → M PSY 23:06
PROVIDERS: ADMIT Psychiatry & Neurology Neurology; ATTEND Psychiatry & Neurology Neurology
DX: F31.2 Bipolar disorder, current episode manic severe with psychotic features (principal); Z62.810 Personal history of physical and sexual abuse in childhood; Z91.148 Patient's other noncompliance with medication regimen for other reason; F12.90 Cannabis use, unspecified, uncomplicated; F14.90 Cocaine use, unspecified, uncomplicated; F15.90 Other stimulant use, unspecified, uncomplicated; F10.10 Alcohol abuse, uncomplicated; F17.200 Nicotine dependence, unspecified, uncomplicated; F41.1 Generalized anxiety disorder; F41.0 Panic disorder [episodic paroxysmal anxiety]

== ENCOUNTER 2025-02-14 20:31 | Emergency (ER) | payer MEDICAID, OTHER ==
[~2025-02-14] VITALS: Ht 167.6 cm; Wt 64.4 kg
[~2025-02-14 20:31] MED LIST changes: +DIVA-65 PO; +LATU40TA2 PO; +MED REC COMMENT; +VENL37.52 PO; +med rec comment
[2025-02-14] MEDS ORDERED: MIDAZOLAM INJ 2 MG/2 ML VIAL IM STA (21:31)
[2025-02-14] MEDS ORDERED: HALOPERIDOL LACTATE 5 MG/ML VIAL IM STA (21:31)
[2025-02-14] MEDS: OLANZapine INTRAMUSCULAR 10MG VIAL IM ONE (21:49)
[2025-02-14 22:21] LABS: PLATELET COUNT, AUTOMATED 378 10^3/uL (150-450)
[2025-02-14 22:36] LABS: ETHYL ALCOHOL (ETHANOL) < 0.003 % (0.000-0.010)
[2025-02-14 22:38] LABS: ALT/SGPT 38 U/L (7.0-40); AST/SGOT 33 U/L (<34); CALCIUM LEVEL 9.5 MG/DL (8.5-10.1); CARBON DIOXIDE LEVEL 22 MMOL/L (20-31); CHLORIDE LEVEL 103 MMOL/L (98-107); CREATININE FOR GFR 1.17 MG/DL (0.70-1.30); GLOMERULAR FILTRATION RATE 80.3 (>60); POTASSIUM SERUM 3.9 MMOL/L (3.5-5.1); SALICYLATE LEVEL < 3.0 MG/DL (<30); SODIUM LEVEL 141 MMOL/L (136-145)
[2025-02-14 22:46] LABS: CK-MB VALUE MASS 3.8 NG/ML (<3.6)
[2025-02-14 22:47] LABS: CPK CREATINE PHOSPHOKINASE 219 U/L (46-171); MB/CK RELATIVE INDEX 1.73 (< OR =4)
[2025-02-14] MEDS ORDERED: HOME MED LIST COMPLETE! XX SCH (23:40)
[2025-02-15 00:40] LABS: BARBITURATES URINE NEGATIVE (NEGATIVE); BENZODIAZEPINES URINE NEGATIVE (NEGATIVE); METHADONE URINE NEGATIVE (NEGATIVE); OPIATES URINE NEGATIVE (NEGATIVE); PHENCYCLIDINE URINE NEGATIVE (NEGATIVE)
[2025-02-15 00:43] LABS: AMPHETAMINES LEVEL URINE POSITIVE (NEGATIVE); CANNABINOIDS URINE POSITIVE (NEGATIVE); COCAINE METABOLITE URINE POSITIVE (NEGATIVE)
[2025-02-15 01:00] VITALS: BP 129/74; TEMP 97.7; O2SAT 96
[2025-02-15] MEDS ORDERED: ALBUTEROL 90 MCG/ACT 8 GM HFA INHALER INH PRN (08:35)
[2025-02-15] MEDS: DIVALPROEX 250 MG TAB PO SCH (09:00)
[2025-02-15] MEDS ORDERED: OVERDOSE RESCUE KIT XX SCH (12:15)
[2025-02-15 12:24] LABS: CK-MB VALUE MASS 6.5 NG/ML (<3.6)
[2025-02-15 12:31] LABS: CPK CREATINE PHOSPHOKINASE 487.0 U/L (46-171); MB/CK RELATIVE INDEX 1.33 (< OR =4)
[2025-02-15] MEDS ORDERED: LURASIDONE HCL 40 MG TAB PO SCH (18:00)
== END 2025-02-15 13:27 | disposition home or self-care (01) ==
LOC: M ED 20:31
DX: F19.10 Other psychoactive substance abuse, uncomplicated (principal)
CPT/HCPCS: 71045; 80048; 80076; 80143; 80307; 82077; 82550; 82553; 84443; 84484; 85027; 93005; 96372; 99285; J2359

== ENCOUNTER 2025-02-19 19:22 | Emergency (ER) | payer MEDICAID ==
[~2025-02-19] VITALS: Ht 165.1 cm; Wt 61.3 kg
[2025-02-19 19:23] VITALS: BP 136/83; TEMP 97.4; O2SAT 99
== END 2025-02-19 19:45 | disposition left against medical advice (07) ==
LOC: M ED 19:22
DX: Z53.21 Procedure and treatment not carried out due to patient leaving prior to being seen by health care provider (principal)

== ENCOUNTER 2025-02-20 07:55 | Inpatient (IN) | payer MEDICAID, OTHER, SELFPAY ==
[~2025-02-20] VITALS: Ht 165.1 cm; Wt 64.0 kg
[2025-02-20 08:49] LABS: PLATELET COUNT, AUTOMATED 432 10^3/uL (150-450)
[2025-02-20 09:17] LABS: BARBITURATES URINE NEGATIVE (NEGATIVE); BENZODIAZEPINES URINE NEGATIVE (NEGATIVE); METHADONE URINE NEGATIVE (NEGATIVE); OPIATES URINE NEGATIVE (NEGATIVE)
[2025-02-20 09:18] LABS: AMPHETAMINES LEVEL URINE POSITIVE (NEGATIVE); CANNABINOIDS URINE POSITIVE (NEGATIVE); COCAINE METABOLITE URINE POSITIVE (NEGATIVE); PHENCYCLIDINE URINE NEGATIVE (NEGATIVE)
[2025-02-20 09:19] LABS: ETHYL ALCOHOL (ETHANOL) < 0.003 % (0.000-0.010)
[2025-02-20 09:21] LABS: ALT/SGPT 27 U/L (7.0-40); AST/SGOT 38 U/L (<34); CALCIUM LEVEL 9.4 MG/DL (8.5-10.1); CARBON DIOXIDE LEVEL 23 MMOL/L (20-31); CHLORIDE LEVEL 100 MMOL/L (98-107); CREATININE FOR GFR 0.98 MG/DL (0.70-1.30); GLOMERULAR FILTRATION RATE > 90.0 (>60); POTASSIUM SERUM 4.2 MMOL/L (3.5-5.1); SALICYLATE LEVEL < 3.0 MG/DL (<30); SODIUM LEVEL 137 MMOL/L (136-145)
[2025-02-20] MEDS: OLANZapine ORAL DISINTEGRATING TAB 5MG PO ONE (13:18)
[2025-02-20] MEDS ORDERED: HOME MED LIST COMPLETE! XX SCH (17:20)
[2025-02-20] MEDS ORDERED: LORazepam 1 MG TAB PO PRN (22:15)
[2025-02-20] MEDS ORDERED: ALBUTEROL 90 MCG/ACT 8 GM HFA INHALER INH PRN (22:15)
[2025-02-20] MEDS ORDERED: ACETAMINOPHEN 325 MG TAB PO PRN (22:15)
[2025-02-20] MEDS ORDERED: HALOPERIDOL 5 MG TAB PO PRN (22:15)
[2025-02-20] MEDS ORDERED: MOM 30 ML SUSPENSION UDC PO PRN (22:15)
[2025-02-20] MEDS ORDERED: MAALOX 30 ML SUSP *UDC PO PRN (22:15)
[2025-02-20 22:46] VITALS: BP 113/78; TEMP 97.3; O2SAT 98
[2025-02-20] MEDS: DIVALPROEX 250 MG TAB PO SCH (23:13)
[2025-02-20] MEDS: IBUPROFEN 400 MG TAB PO PRN (23:32)
[2025-02-21 06:53] VITALS: BP 117/70; TEMP 97.8; O2SAT 96
[2025-02-21] MEDS: DIVALPROEX 250 MG TAB PO SCH (09:44)
[2025-02-21] MEDS: LURASIDONE HCL 40 MG TAB PO SCH (18:17)
[2025-02-21] MEDS: traZODone 50 MG TAB PO PRN (21:04)
[2025-02-22 06:58] VITALS: BP 99/57; TEMP 97.8; O2SAT 99
== END 2025-02-22 13:28 | disposition home or self-care (01) | DRG 774 ==
LOC: M ED 07:55 → M ED INP 22:11 → M PSY 22:45
PROVIDERS: ADMIT Psychiatry & Neurology Neurology; ATTEND Psychiatry & Neurology Neurology
DX: F14.24 Cocaine dependence with cocaine-induced mood disorder (principal); R45.850 Homicidal ideations; F12.288 Cannabis dependence with other cannabis-induced disorder; F41.0 Panic disorder [episodic paroxysmal anxiety]; Z79.899 Other long term (current) drug therapy; F41.1 Generalized anxiety disorder; F15.24 Other stimulant dependence with stimulant-induced mood disorder